=== PATIENT | male | born 1960 | race Hispanic/Latino ===

== ENCOUNTER 2021-11-29 18:17 | Inpatient (IN) | payer MEDICARE ==
[2021-11-30 01:28] LABS: Hematocrit 36.9 % (35.5-45.6); Hemoglobin 11.9 gm/dl (11.8-15.2); Mean Corpuscular HGB Conc 32 % (32-34); Mean Corpuscular Volume 86 fl (84-94); Platelet Count 153 K/mm3 (140-440); Red Blood Count 4.27 M/mm3 (3.65-5.03); Red Cell Distribution Width 16.9 % (13.2-15.2)
[2021-11-30 02:24] LABS: Basophils % (Manual) 0 % (0.0-1.8); Total Cells Counted 100
[2021-11-30 02:26] LABS: Anisocytosis 1+
[2021-11-30 02:30] LABS: Platelet Estimate Consistent w Auto; Rouleaux 1+
[2021-11-30 04:48] LABS: Alanine Aminotransferase 56 units/L (7-56); Albumin 3.4 g/dL (3.9-5); Blood Urea Nitrogen 11 mg/dL (9-20); Calcium 7.7 mg/dL (8.4-10.2); Chol/HDL Ratio 3.16 %; HDL Cholesterol 37 mg/dL (40-59); Hemolysis Index 6; LDL Cholesterol,Direct 62 mg/dL (50-130)
[2021-11-30 04:56] LABS: BUN/Creatinine Ratio 16
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
[2021-11-30] MEDS ORDERED: NON-FORMULARY EACH (Albuterol Sulfate [Proair Respiclick] 90 MCG Aer.Pow.Ba) IH PRN (11:43)
[2021-11-30] MEDS ORDERED: NON-FORMULARY EACH (Ziprasidone Hcl [Geodon] 80 MG Capsule) PO SCH (11:45)
[2021-11-30] MEDS ORDERED: NON-FORMULARY EACH (Fluoxetine Hcl [Prozac] 40 MG Capsule) PO SCH (11:45)
[2021-11-30] MEDS: ZIPRASIDONE 40 MG CAP PO SCH (13:15)
[2021-11-30] MEDS: FLUoxetine 20 MG CAP PO SCH (13:15)
[2021-11-30] MEDS: PANTOPRAZOLE 40 MG TAB PO SCH (13:15)
[2021-11-30] MEDS: amLODIPine 10 MG TAB PO SCH (13:16)
[2021-11-30] MEDS ORDERED: ALBUTEROL 2.5 MG/3 ML NEBU IH SCH (14:00)
[2021-11-30] MEDS: clonazePAM 0.5 MG TAB PO SCH ×2 (15:13→21:09)
[2021-11-30] MEDS ORDERED: ALBUTEROL 2.5 MG/3 ML NEBU IH PRN (16:00)
[2021-11-30] MEDS ORDERED: AMPHETAMINE PO SCH (18:00)
[2021-11-30] MEDS ORDERED: DEXTROAMPHETAMINE PO SCH (18:00)
[2021-11-30] MEDS: rOPINIRole 1 MG TAB PO SCH (21:11)
[2021-11-30] MEDS: TEMAZEPAM 15 MG CAP PO SCH (21:11)
[2021-12-01] MEDS: clonazePAM 0.5 MG TAB PO SCH ×3 (09:49→20:31)
[2021-12-01] MEDS: ACETAMINOPHEN 325 MG TAB PO PRN ×2 (09:49→22:01)
[2021-12-01] MEDS: amLODIPine 10 MG TAB PO SCH (09:50)
[2021-12-01] MEDS: FLUoxetine 20 MG CAP PO SCH (09:50)
[2021-12-01] MEDS: ZIPRASIDONE 40 MG CAP PO SCH (09:50)
[2021-12-01] MEDS: PANTOPRAZOLE 40 MG TAB PO SCH (09:50)
[2021-12-01] MEDS: LEVOTHYROXINE 75 MCG TAB PO SCH (09:55)
[2021-12-01] MEDS ORDERED: NON-FORMULARY EACH (Fluticasone/Umeclidin/Vilanter [Trelegy Ellipta 100-62.5-25] 1 EACH Bl NS SCH (10:00)
--- NOTE | 2021-12-01 10:11 | Progress Note ---
Subjective Date of service: 12/01/21 Principal diagnosis: MDD Subjective Comment: The patient was seen today. He says she is not good. He says he didn't sleep well. The patient says he's very anxious and has a headache. He says he's used to having a high dose of xanax at 8mg daily. I inform the patient that I would increase his klonopin, but will not give 8mg daily. He is in agreement with the plan. He also says he still feels SI. He denies a plan. The patient denies hallucinations of any kind. REVIEW OF SYSTEMS Constitutional: Negative for weight loss ENT: Negative for stridor Respiratory: Negative for cough or hemoptysis All other systems reviewed and are negative MENTAL STATUS EXAMINATION General Appearance and Behavior: Age appropriate, good hygiene, wearing appropriate clothes, good eye contact, anxious, cooperative Cooperation: Participating/engaged, but Guarded Psychomotor Behavior: Psychomotor normal Mood: depressed, SI, anxious Affect and affective range: congruent with stated mood Thought Process: goal directed Thought Content: helplessness, hopelessness Speech: normal tone and pace Suicidal Ideation: Yes Homicidal Ideation: Denies Hallucinations: Denies Delusions: None elicited Impulse Control: Limited Insight and Judgment: Poor insight and judgment Memory: Limited Attention: attentive Orientation: Alert, oriented Assessment and Plan Bipolar Disorder Generalized Anxiety Disorder Treatment Plan Patient admitted for inpatient psychiatric evaluation, medication adjustment and close monitoring The patient's behavior, mood, sleep and appetite will be closely monitored. Patient enrolled in individual and group therapeutic sessions and encouraged to attend. Patient provided with a safe and structured environment. Patient's physical health needs will be addressed by the Hospitalist. Hospitalist Consulted Labs including CBC, CMP, Lipid profile and Hemoglobin A1C levels ordered for baseline reference Social Assessment will be completed and the Ditch Repairer will work with patient and family to ensure a suitable and safe disposition Medication adjustment will be made as clinically indicated Increase Klonopin 1mg po TID Start Melatonin 10mg po qhs prn insomnia Start Vistaril 50mg po BID Usual Wellness Rastafarian/Preservation: - Start Trazodone 50 mg po QHS & 50 mg po QHS PRN between 10 PM & 2 AM for insomnia - Start Melatonin 5 mg po QHS to promote circadian rhythm The patient agreed on the treatment plan, understood the risk, benefit, alternative treatment, potential consequence of no treatment, and gave informed consent. Estimated days: 7 Post hospital care: primary care provider, psychiatric provider Case staffed with Dr. Combs Medications and Allergies Allergies Allergy/AdvReac Type Severity Reaction Status Date / Time Penicillins Allergy Unknown Verified 07/05/15 18:37 Home Medications Medication Instructions Recorded Confirmed Last Taken Type FLUoxetine HCL [PROzac] 80 mg PO QDAY 07/05/15 11/30/21 07/04/15 History ALPRAZolam [Xanax TAB] 2 mg PO Q8H PRN 11/30/21 11/30/21 Unknown History Albuterol Sulfate [Proair 90 mcg IH Q6HR PRN 11/30/21 11/30/21 Unknown History Respiclick] Dextroamphetamine/Amphetami(Nf 30 mg PO 0600,1800 11/30/21 11/30/21 Unknown History [Amphetamine Salts (Nf)] Fluticasone/Umeclidin/Vilanter 1 each IH DAILY 11/30/21 11/30/21 Unknown History [Trelegy Ellipta 100-62.5-25] Levothyroxine [Synthroid] 75 mcg PO QAM 11/30/21 11/30/21 Unknown History Pantoprazole [Protonix] 40 mg PO QDAY 11/30/21 11/30/21 Unknown History Temazepam [Restoril] 30 mg PO QHS 11/30/21 11/30/21 Unknown History Ziprasidone HCl [Geodon] 80 mg PO DAILY 11/30/21 11/30/21 Unknown History amLODIPine [Norvasc] 10 mg PO DAILY 11/30/21 11/30/21 Unknown History rOPINIRole [Requip] 1 mg PO QHS 11/30/21 11/30/21 Unknown History Active Meds: Active Medications Acetaminophen (Acetaminophen 325 Mg Tab) 650 mg PO Q6H PRN PRN Reason: Pain, Mild (1-3) Last Admin: 12/01/21 09:49 Dose: 650 mg Albuterol (Albuterol 2.5 Mg/3 Ml Nebu) 2.5 mg IH Q4HRT PRN PRN Reason: Shortness Of Breath Amlodipine Besylate (Amlodipine 10 Mg Tab) 10 mg PO DAILY [facility] Last Admin: 12/01/21 09:50 Dose: 10 mg Clonazepam (Clonazepam 0.5 Mg Tab) 1 mg PO TID [facility] Fluoxetine HCl (Fluoxetine 20 Mg Cap) 80 mg PO QDAY [facility] Last Admin: 12/01/21 09:50 Dose: 80 mg Levothyroxine Sodium (Levothyroxine 75 Mcg Tab) 75 mcg PO DAILY@0600 [facility] Last Admin: 12/01/21 09:55 Dose: 75 mcg Melatonin (Melatonin 5 Mg Tab) 10 mg PO QHS PRN PRN Reason: Sleep Miscellaneous Medication (Dextroamphetamine/Amphetamine) 30 mg PO 0600,1800 [facility] Miscellaneous Medication (Fluticasone/Umeclidin/Vilanter [Trelegy Ellipta 100-62.5-25]) 1 each IH DAILY [facility] Pantoprazole Sodium (Pantoprazole 40 Mg Tab) 40 mg PO QDAY [facility] Last Admin: 12/01/21 09:50 Dose: 40 mg Ropinirole HCl (Ropinirole 1 Mg Tab) 1 mg PO QHS [facility] Last Admin: 11/30/21 21:11 Dose: 1 mg Temazepam (Temazepam 15 Mg Cap) 30 mg PO QHS [facility] Last Admin: 11/30/21 21:11 Dose: 30 mg Ziprasidone (Ziprasidone 40 Mg Cap) 80 mg PO DAILY [facility] Last Admin: 12/01/21 09:50 Dose: 80 mg Results - Results Labs/Vitals: Laboratory Last Values WBC 4.5 K/mm3 (4.5-11.0) 11/30/21 01:01 RBC 4.27 M/mm3 (3.65-5.03) 11/30/21 01:01 Hgb 11.9 gm/dl (11.8-15.2) 11/30/21 01:01 Hct 36.9 % (35.5-45.6) 11/30/21 01:01 MCV 86 fl (84-94) 11/30/21 01:01 MCH 28 pg (28-32) 11/30/21 01:01 MCHC 32 % (32-34) 11/30/21 01:01 RDW 16.9 % (13.2-15.2) H 11/30/21 01:01 Plt Count 153 K/mm3 (140-440) 11/30/21 01:01 Add Manual Diff Complete 11/30/21 01:01 Total Counted 100 11/30/21 01:01 Seg Neuts % (Manual) 34.0 % (40.0-70.0) L 11/30/21 01:01 Band Neutrophils % 0 % 11/30/21 01:01 Lymphocytes % (Manual) 48.0 % (13.4-35.0) H 11/30/21 01:01 Reactive Lymphs % (Man) 0 % 11/30/21 01:01 Monocytes % (Manual) 7.0 % (0.0-7.3) 11/30/21 01:01 Eosinophils % (Manual) 11.0 % (0.0-4.3) H 11/30/21 01:01 Basophils % (Manual) 0 % (0.0-1.8) 11/30/21 01:01 Metamyelocytes % 0 % 11/30/21 01:01 Myelocytes % 0 % 11/30/21 01:01 Promyelocytes % 0 % 11/30/21 01:01 Blast Cells % 0 % 11/30/21 01:01 Nucleated RBC % Not Reportable 11/30/21 01:01 Seg Neutrophils # Man 1.5 K/mm3 (1.8-7.7) L 11/30/21 01:01 Band Neutrophils # 0.0 K/mm3 11/30/21 01:01 Lymphocytes # (Manual) 2.2 K/mm3 (1.2-5.4) 11/30/21 01:01 Abs React Lymphs (Man) 0.0 K/mm3 11/30/21 01:01 Monocytes # (Manual) 0.3 K/mm3 (0.0-0.8) 11/30/21 01:01 Eosinophils # (Manual) 0.5 K/mm3 (0.0-0.4) H 11/30/21 01:01 Basophils # (Manual) 0.0 K/mm3 (0.0-0.1) 11/30/21 01:01 Metamyelocytes # 0.0 K/mm3 11/30/21 01:01 Myelocytes # 0.0 K/mm3 11/30/21 01:01 Promyelocytes # 0.0 K/mm3 11/30/21 01:01 Blast Cells # 0.0 K/mm3 11/30/21 01:01 Pathologist Review 11/30/21 01:01 Hypersegmented Neuts Not Reportable 11/30/21 01:01 Hyposegmented Neuts Not Reportable 11/30/21 01:01 Hypogranular Neuts Not Reportable 11/30/21 01:01 Smudge Cells Not Reportable 11/30/21 01:01 Toxic Granulation Not Reportable 11/30/21 01:01 Toxic Vacuolation Not Reportable 11/30/21 01:01 Dohle Bodies Not Reportable 11/30/21 01:01 Pelger-Huet Anomaly Not Reportable 11/30/21 01:01 Sohail Rods Not Reportable 11/30/21 01:01 Platelet Estimate Consistent w auto 11/30/21 01:01 Clumped Platelets Not Reportable 11/30/21 01:01 Plt Clumps, EDTA Not Reportable 11/30/21 01:01 Large Platelets Not Reportable 11/30/21 01:01 Giant Platelets Not Reportable 11/30/21 01:01 Platelet Satelliting Not Reportable 11/30/21 01:01 Plt Morphology Comment Not Reportable 11/30/21 01:01 RBC Morphology Not Reportable 11/30/21 01:01 Dimorphic RBCs Not Reportable 11/30/21 01:01 Polychromasia Not Reportable 11/30/21 01:01 Hypochromasia Not Reportable 11/30/21 01:01 Poikilocytosis Not Reportable 11/30/21 01:01 Anisocytosis 1+ 11/30/21 01:01 Microcytosis 1+ 11/30/21 01:01 Macrocytosis Not Reportable 11/30/21 01:01 Spherocytes Not Reportable 11/30/21 01:01 Pappenheimer Bodies Not Reportable 11/30/21 01:01 Sickle Cells Not Reportable 11/30/21 01:01 Target Cells Not Reportable 11/30/21 01:01 Tear Drop Cells Not Reportable 11/30/21 01:01 Ovalocytes Not Reportable 11/30/21 01:01 Helmet Cells Not Reportable 11/30/21 01:01 Corado-Irwin Bodies Not Reportable 11/30/21 01:01 [place] Rings Not Reportable 11/30/21 01:01 Carlos Cells Not Reportable 11/30/21 01:01 Bite Cells Not Reportable 11/30/21 01:01 Crenated Cell Not Reportable 11/30/21 01:01 Elliptocytes Not Reportable 11/30/21 01:01 Acanthocytes (Spur) Not Reportable 11/30/21 01:01 Rouleaux 1+ 11/30/21 01:01 Hemoglobin C Crystals Not Reportable 11/30/21 01:01 Schistocytes Not Reportable 11/30/21 01:01 Malaria parasites Not Reportable 11/30/21 01:01 Sunday Bodies Not Reportable 11/30/21 01:01 Hem Pathologist Commnt Sent to pathology 11/30/21 01:01 Sodium 142 mmol/L (137-145) 11/30/21 01:01 Potassium 3.6 mmol/L (3.6-5.0) 11/30/21 01:01 Chloride 107.7 mmol/L (98-107) H 11/30/21 01:01 Carbon Dioxide 20 mmol/L (22-30) L 11/30/21 01:01 Anion Gap 18 mmol/L 11/30/21 01:01 BUN 11 mg/dL (9-20) 11/30/21 01:01 Creatinine 0.7 mg/dL (0.8-1.3) L 11/30/21 01:01 Estimated GFR > 60 ml/min 11/30/21 01:01 BUN/Creatinine Ratio 16 % 11/30/21 01:01 Glucose 100 mg/dL (75-100) 11/30/21 01:01 Hemoglobin A1c 5.1 % (4-6) 11/30/21 01:01 Calcium 7.7 mg/dL (8.4-10.2) L 11/30/21 01:01 Total Bilirubin 0.60 mg/dL (0.1-1.2) 11/30/21 01:01 AST 37 units/L (5-40) 11/30/21 01:01 ALT 56 units/L (7-56) 11/30/21 01:01 Alkaline Phosphatase 121 units/L (35-129) 11/30/21 01:01 Total Protein 5.6 g/dL (6.3-8.2) L 11/30/21 01:01 Albumin 3.4 g/dL (3.9-5) L 11/30/21 01:01 Albumin/Globulin Ratio 1.5 % 11/30/21 01:01 Triglycerides 104 mg/dL (2-149) 11/30/21 01:01 Cholesterol 117 mg/dL (50-199) 11/30/21 01:01 LDL Cholesterol Direct 62 mg/dL (50-130) 11/30/21 01:01 HDL Cholesterol 37 mg/dL (40-59) L 11/30/21 01:01 Cholesterol/HDL Ratio 3.16 % 11/30/21 01:01 TSH 1.950 mlU/mL (0.270-4.200) 11/30/21 01:01 Last Vital Signs Temp 98.5 F 12/01/21 08:44 Pulse 75 12/01/21 09:50 Resp 16 12/01/21 08:44 BP 136/82 12/01/21 09:50 Pulse Ox 96 12/01/21 08:44
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
[2021-12-01] MEDS: rOPINIRole 1 MG TAB PO SCH (21:26)
[2021-12-01] MEDS: TEMAZEPAM 15 MG CAP PO SCH (21:26)
[2021-12-02] MEDS: LEVOTHYROXINE 75 MCG TAB PO SCH (05:42)
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
--- NOTE | 2021-12-02 09:07 | Progress Note ---
Subjective Date of service: 12/02/21 Principal diagnosis: MDD Subjective Comment: The patient was seen today. He thanks me for treating him. He says he usually doesn't like vistaril but it has been helping him to sleep well. He still endorses SI but denies a plan. He says his is missing and he would like to speak with the SW. 12/01 The patient was seen today. He says she is not good. He says he didn't sleep well. The patient says he's very anxious and has a headache. He says he's used to having a high dose of xanax at 8mg daily. I inform the patient that I would increase his klonopin, but will not give 8mg daily. He is in agreement with the plan. He also says he still feels SI. He denies a plan. The patient denies hallucinations of any kind. REVIEW OF SYSTEMS Constitutional: Negative for weight loss ENT: Negative for stridor Respiratory: Negative for cough or hemoptysis All other systems reviewed and are negative MENTAL STATUS EXAMINATION General Appearance and Behavior: Age appropriate, good hygiene, wearing appropriate clothes, good eye contact, anxious, cooperative Cooperation: Participating/engaged, but Guarded Psychomotor Behavior: Psychomotor normal Mood: depressed, SI, anxious Affect and affective range: congruent with stated mood Thought Process: goal directed Thought Content: helplessness, hopelessness Speech: normal tone and pace Suicidal Ideation: Yes Homicidal Ideation: Denies Hallucinations: Denies Delusions: None elicited Impulse Control: Limited Insight and Judgment: Poor insight and judgment Memory: Limited Attention: attentive Orientation: Alert, oriented Assessment and Plan Bipolar Disorder Generalized Anxiety Disorder Treatment Plan Patient admitted for inpatient psychiatric evaluation, medication adjustment and close monitoring The patient's behavior, mood, sleep and appetite will be closely monitored. Patient enrolled in individual and group therapeutic sessions and encouraged to attend. Patient provided with a safe and structured environment. Patient's physical health needs will be addressed by the Hospitalist. Hospitalist Consulted Labs including CBC, CMP, Lipid profile and Hemoglobin A1C levels ordered for baseline reference Social Assessment will be completed and the Dba Manager will work with patient and family to ensure a suitable and safe disposition Medication adjustment will be made as clinically indicated Continue current meds Usual Wellness Congregation/Preservation: - Start Trazodone 50 mg po QHS & 50 mg po QHS PRN between 10 PM & 2 AM for insomnia - Start Melatonin 5 mg po QHS to promote circadian rhythm The patient agreed on the treatment plan, understood the risk, benefit, alternative treatment, potential consequence of no treatment, and gave informed consent. Estimated days: 7 Post hospital care: primary care provider, psychiatric provider Case staffed with Dr. Combs Medications and Allergies Allergies Allergy/AdvReac Type Severity Reaction Status Date / Time Penicillins Allergy Unknown Verified 07/05/15 18:37 Home Medications Medication Instructions Recorded Confirmed Last Taken Type FLUoxetine HCL [PROzac] 80 mg PO QDAY 07/05/15 11/30/21 07/04/15 History ALPRAZolam [Xanax TAB] 2 mg PO Q8H PRN 11/30/21 11/30/21 Unknown History Albuterol Sulfate [Proair 90 mcg IH Q6HR PRN 11/30/21 11/30/21 Unknown History Respiclick] Dextroamphetamine/Amphetami(Nf 30 mg PO 0600,1800 11/30/21 11/30/21 Unknown History [Amphetamine Salts (Nf)] Fluticasone/Umeclidin/Vilanter 1 each IH DAILY 11/30/21 11/30/21 Unknown History [Trelegy Ellipta 100-62.5-25] Levothyroxine [Synthroid] 75 mcg PO QAM 11/30/21 11/30/21 Unknown History Pantoprazole [Protonix] 40 mg PO QDAY 11/30/21 11/30/21 Unknown History Temazepam [Restoril] 30 mg PO QHS 11/30/21 11/30/21 Unknown History Ziprasidone HCl [Geodon] 80 mg PO DAILY 11/30/21 11/30/21 Unknown History amLODIPine [Norvasc] 10 mg PO DAILY 11/30/21 11/30/21 Unknown History rOPINIRole [Requip] 1 mg PO QHS 11/30/21 11/30/21 Unknown History Active Meds: Active Medications Acetaminophen (Acetaminophen 325 Mg Tab) 650 mg PO Q6H PRN PRN Reason: Pain, Mild (1-3) Last Admin: 12/01/21 22:01 Dose: 650 mg Albuterol (Albuterol 2.5 Mg/3 Ml Nebu) 2.5 mg IH Q4HRT PRN PRN Reason: Shortness Of Breath Amlodipine Besylate (Amlodipine 10 Mg Tab) 10 mg PO DAILY [facility] Last Admin: 12/01/21 09:50 Dose: 10 mg Clonazepam (Clonazepam 0.5 Mg Tab) 1 mg PO TID [facility] Last Admin: 12/01/21 20:31 Dose: 1 mg Fluoxetine HCl (Fluoxetine 20 Mg Cap) 80 mg PO QDAY [facility] Last Admin: 12/01/21 09:50 Dose: 80 mg Hydroxyzine Pamoate (Hydroxyzine Pamoate 50 Mg Cap) 50 mg PO BID [facility] Last Admin: 12/01/21 21:26 Dose: 50 mg Levothyroxine Sodium (Levothyroxine 75 Mcg Tab) 75 mcg PO DAILY@0600 [facility] Last Admin: 12/02/21 05:42 Dose: 75 mcg Melatonin (Melatonin 5 Mg Tab) 10 mg PO QHS PRN PRN Reason: Sleep Miscellaneous Medication (Dextroamphetamine/Amphetamine) 30 mg PO 0600,1800 [facility] Miscellaneous Medication (Fluticasone/Umeclidin/Vilanter [Trelegy Ellipta 100-62.5-25]) 1 each IH DAILY [facility] Pantoprazole Sodium (Pantoprazole 40 Mg Tab) 40 mg PO QDAY [facility] Last Admin: 12/01/21 09:50 Dose: 40 mg Ropinirole HCl (Ropinirole 1 Mg Tab) 1 mg PO QHS [facility] Last Admin: 12/01/21 21:26 Dose: 1 mg Temazepam (Temazepam 15 Mg Cap) 30 mg PO QHS [facility] Last Admin: 12/01/21 21:26 Dose: 30 mg Ziprasidone (Ziprasidone 40 Mg Cap) 80 mg PO DAILY [facility] Last Admin: 12/01/21 09:50 Dose: 80 mg Results - Results Labs/Vitals: Laboratory Last Values WBC 4.5 K/mm3 (4.5-11.0) 11/30/21 01:01 RBC 4.27 M/mm3 (3.65-5.03) 11/30/21 01:01 Hgb 11.9 gm/dl (11.8-15.2) 11/30/21 01:01 Hct 36.9 % (35.5-45.6) 11/30/21 01:01 MCV 86 fl (84-94) 11/30/21 01:01 MCH 28 pg (28-32) 11/30/21 01:01 MCHC 32 % (32-34) 11/30/21 01:01 RDW 16.9 % (13.2-15.2) H 11/30/21 01:01 Plt Count 153 K/mm3 (140-440) 11/30/21 01:01 Add Manual Diff Complete 11/30/21 01:01 Total Counted 100 11/30/21 01:01 Seg Neuts % (Manual) 34.0 % (40.0-70.0) L 11/30/21 01:01 Band Neutrophils % 0 % 11/30/21 01:01 Lymphocytes % (Manual) 48.0 % (13.4-35.0) H 11/30/21 01:01 Reactive Lymphs % (Man) 0 % 11/30/21 01:01 Monocytes % (Manual) 7.0 % (0.0-7.3) 11/30/21 01:01 Eosinophils % (Manual) 11.0 % (0.0-4.3) H 11/30/21 01:01 Basophils % (Manual) 0 % (0.0-1.8) 11/30/21 01:01 Metamyelocytes % 0 % 11/30/21 01:01 Myelocytes % 0 % 11/30/21 01:01 Promyelocytes % 0 % 11/30/21 01:01 Blast Cells % 0 % 11/30/21 01:01 Nucleated RBC % Not Reportable 11/30/21 01:01 Seg Neutrophils # Man 1.5 K/mm3 (1.8-7.7) L 11/30/21 01:01 Band Neutrophils # 0.0 K/mm3 11/30/21 01:01 Lymphocytes # (Manual) 2.2 K/mm3 (1.2-5.4) 11/30/21 01:01 Abs React Lymphs (Man) 0.0 K/mm3 11/30/21 01:01 Monocytes # (Manual) 0.3 K/mm3 (0.0-0.8) 11/30/21 01:01 Eosinophils # (Manual) 0.5 K/mm3 (0.0-0.4) H 11/30/21 01:01 Basophils # (Manual) 0.0 K/mm3 (0.0-0.1) 11/30/21 01:01 Metamyelocytes # 0.0 K/mm3 11/30/21 01:01 Myelocytes # 0.0 K/mm3 11/30/21 01:01 Promyelocytes # 0.0 K/mm3 11/30/21 01:01 Blast Cells # 0.0 K/mm3 11/30/21 01:01 Pathologist Review 11/30/21 01:01 WBC Morphology Not Reportable 11/30/21 01:01 Hypersegmented Neuts Not Reportable 11/30/21 01:01 Hyposegmented Neuts Not Reportable 11/30/21 01:01 Hypogranular Neuts Not Reportable 11/30/21 01:01 Smudge Cells Not Reportable 11/30/21 01:01 Toxic Granulation Not Reportable 11/30/21 01:01 Toxic Vacuolation Not Reportable 11/30/21 01:01 Dohle Bodies Not Reportable 11/30/21 01:01 Pelger-Huet Anomaly Not Reportable 11/30/21 01:01 Sohail Rods Not Reportable 11/30/21 01:01 Platelet Estimate Consistent w auto 11/30/21 01:01 Clumped Platelets Not Reportable 11/30/21 01:01 Plt Clumps, EDTA Not Reportable 11/30/21 01:01 Large Platelets Not Reportable 11/30/21 01:01 Giant Platelets Not Reportable 11/30/21 01:01 Platelet Satelliting Not Reportable 11/30/21 01:01 Plt Morphology Comment Not Reportable 11/30/21 01:01 RBC Morphology Not Reportable 11/30/21 01:01 Dimorphic RBCs Not Reportable 11/30/21 01:01 Polychromasia Not Reportable 11/30/21 01:01 Hypochromasia Not Reportable 11/30/21 01:01 Poikilocytosis Not Reportable 11/30/21 01:01 Anisocytosis 1+ 11/30/21 01:01 Microcytosis 1+ 11/30/21 01:01 Macrocytosis Not Reportable 11/30/21 01:01 Spherocytes Not Reportable 11/30/21 01:01 Pappenheimer Bodies Not Reportable 11/30/21 01:01 Sickle Cells Not Reportable 11/30/21 01:01 Target Cells Not Reportable 11/30/21 01:01 Tear Drop Cells Not Reportable 11/30/21 01:01 Ovalocytes Not Reportable 11/30/21 01:01 Helmet Cells Not Reportable 11/30/21 01:01 [place] Bodies Not Reportable 11/30/21 01:01 [place] Rings Not Reportable 11/30/21 01:01 Carlos Cells Not Reportable 11/30/21 01:01 Bite Cells Not Reportable 11/30/21 01:01 Crenated Cell Not Reportable 11/30/21 01:01 Elliptocytes Not Reportable 11/30/21 01:01 Acanthocytes (Spur) Not Reportable 11/30/21 01:01 Rouleaux 1+ 11/30/21 01:01 Hemoglobin C Crystals Not Reportable 11/30/21 01:01 Schistocytes Not Reportable 11/30/21 01:01 Malaria parasites Not Reportable 11/30/21 01:01 Sunday Bodies Not Reportable 11/30/21 01:01 Hem Pathologist Commnt Sent to pathology 11/30/21 01:01 Sodium 142 mmol/L (137-145) 11/30/21 01:01 Potassium 3.6 mmol/L (3.6-5.0) 11/30/21 01:01 Chloride 107.7 mmol/L (98-107) H 11/30/21 01:01 Carbon Dioxide 20 mmol/L (22-30) L 11/30/21 01:01 Anion Gap 18 mmol/L 11/30/21 01:01 BUN 11 mg/dL (9-20) 11/30/21 01:01 Creatinine 0.7 mg/dL (0.8-1.3) L 11/30/21 01:01 Estimated GFR > 60 ml/min 11/30/21 01:01 BUN/Creatinine Ratio 16 % 11/30/21 01:01 Glucose 100 mg/dL (75-100) 11/30/21 01:01 Hemoglobin A1c 5.1 % (4-6) 11/30/21 01:01 Calcium 7.7 mg/dL (8.4-10.2) L 11/30/21 01:01 Total Bilirubin 0.60 mg/dL (0.1-1.2) 11/30/21 01:01 AST 37 units/L (5-40) 11/30/21 01:01 ALT 56 units/L (7-56) 11/30/21 01:01 Alkaline Phosphatase 121 units/L (35-129) 11/30/21 01:01 Total Protein 5.6 g/dL (6.3-8.2) L 11/30/21 01:01 Albumin 3.4 g/dL (3.9-5) L 11/30/21 01:01 Albumin/Globulin Ratio 1.5 % 11/30/21 01:01 Triglycerides 104 mg/dL (2-149) 11/30/21 01:01 Cholesterol 117 mg/dL (50-199) 11/30/21 01:01 LDL Cholesterol Direct 62 mg/dL (50-130) 11/30/21 01:01 HDL Cholesterol 37 mg/dL (40-59) L 11/30/21 01:01 Cholesterol/HDL Ratio 3.16 % 11/30/21 01:01 TSH 1.950 mlU/mL (0.270-4.200) 11/30/21 01:01 Last Vital Signs Temp 98.4 F 12/01/21 20:00 Pulse 79 12/01/21 20:00 Resp 18 12/01/21 22:01 BP 127/74 12/01/21 20:00 Pulse Ox 93 12/01/21 20:00
[2021-12-02] MEDS: FLUoxetine 20 MG CAP PO SCH (09:48)
[2021-12-02] MEDS: ZIPRASIDONE 40 MG CAP PO SCH (09:48)
[2021-12-02] MEDS: clonazePAM 0.5 MG TAB PO SCH ×3 (09:48→21:34)
[2021-12-02] MEDS: PANTOPRAZOLE 40 MG TAB PO SCH (09:49)
[2021-12-02] MEDS: amLODIPine 10 MG TAB PO SCH (09:49)
[2021-12-02] MEDS ORDERED: ALBUTEROL 8.5 GM MDI INHALATION IH PRN (11:14)
[2021-12-02] MEDS: ARFORMOTEROL 15 MCG/2 ML NEBU IH SCH ×2 (14:09→21:03)
[2021-12-02] MEDS: BUDESONIDE 0.5 MG/2 ML NEBU IH SCH ×2 (14:09→21:03)
[2021-12-02] MEDS: rOPINIRole 1 MG TAB PO SCH (21:33)
[2021-12-02] MEDS: TEMAZEPAM 15 MG CAP PO SCH (21:35)
[2021-12-02] MEDS: MELATONIN 5 MG TAB PO PRN (21:36)
[2021-12-03] MEDS: LEVOTHYROXINE 75 MCG TAB PO SCH (06:12)
[2021-12-03] MEDS: ACETAMINOPHEN 325 MG TAB PO PRN (06:16)
[2021-12-03] MEDS: FLUoxetine 20 MG CAP PO SCH (09:38)
[2021-12-03] MEDS: clonazePAM 0.5 MG TAB PO SCH ×3 (09:38→20:39)
[2021-12-03] MEDS: PANTOPRAZOLE 40 MG TAB PO SCH (09:39)
[2021-12-03] MEDS: ZIPRASIDONE 40 MG CAP PO SCH (09:39)
[2021-12-03] MEDS: amLODIPine 10 MG TAB PO SCH (09:40)
--- NOTE | 2021-12-03 10:55 | Progress Note ---
Subjective Date of service: 12/03/21 Principal diagnosis: MDD Subjective Comment: 12/03: The patient was seen today. He states he is doing well. He continues to endorse depression rating as 7/10. He states sleep is better. He states that his was missing and he found him yesterday in a " trauma unit in [place]." The patient reports having suicidal ideation with no plan " not here." he denies hallucinations. 12/02: The patient was seen today. He thanks me for treating him. He says he usually doesn't like vistaril but it has been helping him to sleep well. He still endorses SI but denies a plan. He says his is missing and he would like to speak with the SW. 12/01 The patient was seen today. He says she is not good. He says he didn't sleep well. The patient says he's very anxious and has a headache. He says he's used to having a high dose of xanax at 8mg daily. I inform the patient that I would increase his klonopin, but will not give 8mg daily. He is in agreement with the plan. He also says he still feels SI. He denies a plan. The patient denies hallucinations of any kind. REVIEW OF SYSTEMS Constitutional: Negative for weight loss ENT: Negative for stridor Respiratory: Negative for cough or hemoptysis All other systems reviewed and are negative MENTAL STATUS EXAMINATION General Appearance and Behavior: Age appropriate, good hygiene, wearing appropriate clothes, good eye contact, anxious, cooperative Cooperation: Participating/engaged, but Guarded Psychomotor Behavior: Psychomotor normal Mood: depressed, SI, anxious Affect and affective range: congruent with stated mood Thought Process: goal directed Thought Content: suicidal Speech: normal tone and pace Suicidal Ideation: Yes Homicidal Ideation: Denies Hallucinations: Denies Delusions: None elicited Impulse Control: Limited Insight and Judgment: Poor insight and judgment Memory: Limited Attention: attentive Orientation: Alert, oriented Assessment and Plan Bipolar Disorder Generalized Anxiety Disorder Treatment Plan Patient admitted for inpatient psychiatric evaluation, medication adjustment and close monitoring The patient's behavior, mood, sleep and appetite will be closely monitored. Patient enrolled in individual and group therapeutic sessions and encouraged to attend. Patient provided with a safe and structured environment. Patient's physical health needs will be addressed by the Hospitalist. Hospitalist Consulted Labs including CBC, CMP, Lipid profile and Hemoglobin A1C levels ordered for baseline reference Social Assessment will be completed and the Senior Pharmacy Technician will work with patient and family to ensure a suitable and safe disposition Medication adjustment will be made as clinically indicated Continue current meds Usual Wellness Restorationist/Preservation: - Start Trazodone 50 mg po QHS & 50 mg po QHS PRN between 10 PM & 2 AM for insomnia - Start Melatonin 5 mg po QHS to promote circadian rhythm The patient agreed on the treatment plan, understood the risk, benefit, alternative treatment, potential consequence of no treatment, and gave informed consent. Estimated days: 1 Post hospital care: primary care provider, psychiatric provider Case staffed with Dr. Combs Medications and Allergies Medications and Allergies Allergies Allergy/AdvReac Type Severity Reaction Status Date / Time Penicillins Allergy Unknown Verified 07/05/15 18:37 Home Medications Medication Instructions Recorded Confirmed Last Taken Type FLUoxetine HCL [PROzac] 80 mg PO QDAY 07/05/15 11/30/21 07/04/15 History ALPRAZolam [Xanax TAB] 2 mg PO Q8H PRN 11/30/21 11/30/21 Unknown History Albuterol Sulfate [Proair 90 mcg IH Q6HR PRN 11/30/21 11/30/21 Unknown History Respiclick] Dextroamphetamine/Amphetami(Nf 30 mg PO 0600,1800 11/30/21 11/30/21 Unknown Hist ory [Amphetamine Salts (Nf)] Fluticasone/Umeclidin/Vilanter 1 each IH DAILY 11/30/21 11/30/21 Unknown History [Trelegy Ellipta 100-62.5-25] Levothyroxine [Synthroid] 75 mcg PO QAM 11/30/21 11/30/21 Unknown History Pantoprazole [Protonix] 40 mg PO QDAY 11/30/21 11/30/21 Unknown History Temazepam [Restoril] 30 mg PO QHS 11/30/21 11/30/21 Unknown History Ziprasidone HCl [Geodon] 80 mg PO DAILY 11/30/21 11/30/21 Unknown History amLODIPine [Norvasc] 10 mg PO DAILY 11/30/21 11/30/21 Unknown History rOPINIRole [Requip] 1 mg PO QHS 11/30/21 11/30/21 Unknown History Active Meds: Active Medications Acetaminophen (Acetaminophen 325 Mg Tab) 650 mg PO Q6H PRN PRN Reason: Pain, Mild (1-3) Last Admin: 12/03/21 06:16 Dose: 650 mg Albuterol (Albuterol 2.5 Mg/3 Ml Nebu) 2.5 mg IH Q4HRT PRN PRN Reason: Shortness Of Breath Amlodipine Besylate (Amlodipine 10 Mg Tab) 10 mg PO DAILY [facility] Last Admin: 12/03/21 09:40 Dose: 10 mg Arformoterol Tartrate (Arformoterol 15 Mcg/2 Ml Nebu) 15 mcg IH Q12HRT [facility] Last Admin: 12/02/21 21:03 Dose: 15 mcg Budesonide (Budesonide 0.5 Mg/2 Ml Nebu) 0.5 mg IH Q12HRT [facility] Last Admin: 12/02/21 21:03 Dose: 0.5 mg Clonazepam (Clonazepam 0.5 Mg Tab) 1 mg PO TID [facility] Last Admin: 12/03/21 09:38 Dose: 1 mg Fluoxetine HCl (Fluoxetine 20 Mg Cap) 80 mg PO QDAY [facility] Last Admin: 12/03/21 09:38 Dose: 80 mg Hydroxyzine Pamoate (Hydroxyzine Pamoate 50 Mg Cap) 50 mg PO BID [facility] Last Admin: 12/03/21 09:39 Dose: 50 mg Levothyroxine Sodium (Levothyroxine 75 Mcg Tab) 75 mcg PO DAILY@0600 [facility] Last Admin: 12/03/21 06:12 Dose: 75 mcg Melatonin (Melatonin 5 Mg Tab) 10 mg PO QHS PRN PRN Reason: Sleep Last Admin: 12/02/21 21:36 Dose: 10 mg Miscellaneous Medication (Dextroamphetamine/Amphetamine) 30 mg PO 0600,1800 [facility] Miscellaneous Medication (Fluticasone/Umeclidin/Vilanter [Trelegy Ellipta 100-62.5-25]) 1 each NS DAILY [facility] Pantoprazole Sodium (Pantoprazole 40 Mg Tab) 40 mg PO QDAY [facility] Last Admin: 12/03/21 09:39 Dose: 40 mg Ropinirole HCl (Ropinirole 1 Mg Tab) 1 mg PO QHS [facility] Last Admin: 12/02/21 21:33 Dose: 1 mg Temazepam (Temazepam 15 Mg Cap) 30 mg PO QHS [facility] Last Admin: 12/02/21 21:35 Dose: 30 mg Ziprasidone (Ziprasidone 40 Mg Cap) 80 mg PO DAILY [facility] Last Admin: 12/03/21 09:39 Dose: Not Given Results - Results Labs/Vitals: Laboratory Last Values WBC 4.5 K/mm3 (4.5-11.0) 11/30/21 01:01 RBC 4.27 M/mm3 (3.65-5.03) 11/30/21 01:01 Hgb 11.9 gm/dl (11.8-15.2) 11/30/21 01:01 Hct 36.9 % (35.5-45.6) 11/30/21 01:01 MCV 86 fl (84-94) 11/30/21 01:01 MCH 28 pg (28-32) 11/30/21 01:01 MCHC 32 % (32-34) 11/30/21 01:01 RDW 16.9 % (13.2-15.2) H 11/30/21 01:01 Plt Count 153 K/mm3 (140-440) 11/30/21 01:01 Add Manual Diff Complete 11/30/21 01:01 Total Counted 100 11/30/21 01:01 Seg Neuts % (Manual) 34.0 % (40.0-70.0) L 11/30/21 01:01 Band Neutrophils % 0 % 11/30/21 01:01 Lymphocytes % (Manual) 48.0 % (13.4-35.0) H 11/30/21 01:01 Reactive Lymphs % (Man) 0 % 11/30/21 01:01 Monocytes % (Manual) 7.0 % (0.0-7.3) 11/30/21 01:01 Eosinophils % (Manual) 11.0 % (0.0-4.3) H 11/30/21 01:01 Basophils % (Manual) 0 % (0.0-1.8) 11/30/21 01:01 Metamyelocytes % 0 % 11/30/21 01:01 Myelocytes % 0 % 11/30/21 01:01 Promyelocytes % 0 % 11/30/21 01:01 Blast Cells % 0 % 11/30/21 01:01 Nucleated RBC % Not Reportable 11/30/21 01:01 Seg Neutrophils # Man 1.5 K/mm3 (1.8-7.7) L 11/30/21 01:01 Band Neutrophils # 0.0 K/mm3 11/30/21 01:01 Lymphocytes # (Manual) 2.2 K/mm3 (1.2-5.4) 11/30/21 01:01 Abs React Lymphs (Man) 0.0 K/mm3 11/30/21 01:01 Monocytes # (Manual) 0.3 K/mm3 (0.0-0.8) 11/30/21 01:01 Eosinophils # (Manual) 0.5 K/mm3 (0.0-0.4) H 11/30/21 01:01 Basophils # (Manual) 0.0 K/mm3 (0.0-0.1) 11/30/21 01:01 Metamyelocytes # 0.0 K/mm3 11/30/21 01:01 Myelocytes # 0.0 K/mm3 11/30/21 01:01 Promyelocytes # 0.0 K/mm3 11/30/21 01:01 Blast Cells # 0.0 K/mm3 11/30/21 01:01 Pathologist Review 11/30/21 01:01 WBC Morphology Not Reportable 11/30/21 01:01 Hypersegmented Neuts Not Reportable 11/30/21 01:01 Hyposegmented Neuts Not Reportable 11/30/21 01:01 Hypogranular Neuts Not Reportable 11/30/21 01:01 Smudge Cells Not Reportable 11/30/21 01:01 Toxic Granulation Not Reportable 11/30/21 01:01 Toxic Vacuolation Not Reportable 11/30/21 01:01 Dohle Bodies Not Reportable 11/30/21 01:01 Pelger-Huet Anomaly Not Reportable 11/30/21 01:01 Sohail Rods Not Reportable 11/30/21 01:01 Platelet Estimate Consistent w auto 11/30/21 01:01 Clumped Platelets Not Reportable 11/30/21 01:01 Plt Clumps, EDTA Not Reportable 11/30/21 01:01 Large Platelets Not Reportable 11/30/21 01:01 Giant Platelets Not Reportable 11/30/21 01:01 Platelet Satelliting Not Reportable 11/30/21 01:01 Plt Morphology Comment Not Reportable 11/30/21 01:01 RBC Morphology Not Reportable 11/30/21 01:01 Dimorphic RBCs Not Reportable 11/30/21 01:01 Polychromasia Not Reportable 11/30/21 01:01 Hypochromasia Not Reportable 11/30/21 01:01 Poikilocytosis Not Reportable 11/30/21 01:01 Anisocytosis 1+ 11/30/21 01:01 Microcytosis 1+ 11/30/21 01:01 Macrocytosis Not Reportable 11/30/21 01:01 Spherocytes Not Reportable 11/30/21 01:01 Pappenheimer Bodies Not Reportable 11/30/21 01:01 Sickle Cells Not Reportable 11/30/21 01:01 Target Cells Not Reportable 11/30/21 01:01 Tear Drop Cells Not Reportable 11/30/21 01:01 Ovalocytes Not Reportable 11/30/21 01:01 Helmet Cells Not Reportable 11/30/21 01:01 [place] Bodies Not Reportable 11/30/21 01:01 [place] Rings Not Reportable 11/30/21 01:01 [place] Cells Not Reportable 11/30/21 01:01 Bite Cells Not Reportable 11/30/21 01:01 Crenated Cell Not Reportable 11/30/21 01:01 Elliptocytes Not Reportable 11/30/21 01:01 Acanthocytes (Spur) Not Reportable 11/30/21 01:01 Rouleaux 1+ 11/30/21 01:01 Hemoglobin C Crystals Not Reportable 11/30/21 01:01 Schistocytes Not Reportable 11/30/21 01:01 Malaria parasites Not Reportable 11/30/21 01:01 Sunday Bodies Not Reportable 11/30/21 01:01 Hem Pathologist Commnt Sent to pathology 11/30/21 01:01 Sodium 142 mmol/L (137-145) 11/30/21 01:01 Potassium 3.6 mmol/L (3.6-5.0) 11/30/21 01:01 Chloride 107.7 mmol/L (98-107) H 11/30/21 01:01 Carbon Dioxide 20 mmol/L (22-30) L 11/30/21 01:01 Anion Gap 18 mmol/L 11/30/21 01:01 BUN 11 mg/dL (9-20) 11/30/21 01:01 Creatinine 0.7 mg/dL (0.8-1.3) L 11/30/21 01:01 Estimated GFR > 60 ml/min 11/30/21 01:01 BUN/Creatinine Ratio 16 % 11/30/21 01:01 Glucose 100 mg/dL (75-100) 11/30/21 01:01 Hemoglobin A1c 5.1 % (4-6) 11/30/21 01:01 Calcium 7.7 mg/dL (8.4-10.2) L 11/30/21 01:01 Total Bilirubin 0.60 mg/dL (0.1-1.2) 11/30/21 01:01 AST 37 units/L (5-40) 11/30/21 01:01 ALT 56 units/L (7-56) 11/30/21 01:01 Alkaline Phosphatase 121 units/L (35-129) 11/30/21 01:01 Total Protein 5.6 g/dL (6.3-8.2) L 11/30/21 01:01 Albumin 3.4 g/dL (3.9-5) L 11/30/21 01:01 Albumin/Globulin Ratio 1.5 % 11/30/21 01:01 Triglycerides 104 mg/dL (2-149) 11/30/21 01:01 Cholesterol 117 mg/dL (50-199) 11/30/21 01:01 LDL Cholesterol Direct 62 mg/dL (50-130) 11/30/21 01:01 HDL Cholesterol 37 mg/dL (40-59) L 11/30/21 01:01 Cholesterol/HDL Ratio 3.16 % 11/30/21 01:01 TSH 1.950 mlU/mL (0.270-4.200) 11/30/21 01:01 Last Vital Signs Temp 98.7 F 12/02/21 19:57 Pulse 76 12/02/21 21:03 Resp 18 12/03/21 06:16 BP 123/84 12/02/21 19:57 Pulse Ox 98 12/02/21 21:02
[2021-12-03] MEDS: BUDESONIDE 0.5 MG/2 ML NEBU IH SCH ×2 (18:44→19:51)
[2021-12-03] MEDS: ARFORMOTEROL 15 MCG/2 ML NEBU IH SCH ×2 (18:44→19:51)
[2021-12-03] MEDS: MELATONIN 5 MG TAB PO PRN (20:42)
[2021-12-03] MEDS: rOPINIRole 1 MG TAB PO SCH (21:29)
[2021-12-03] MEDS: TEMAZEPAM 15 MG CAP PO SCH (21:29)
[2021-12-04] MEDS: LEVOTHYROXINE 75 MCG TAB PO SCH (05:46)
[2021-12-04] MEDS: ARFORMOTEROL 15 MCG/2 ML NEBU IH SCH ×2 (07:37→20:24)
[2021-12-04] MEDS: BUDESONIDE 0.5 MG/2 ML NEBU IH SCH ×2 (07:37→20:24)
[2021-12-04] MEDS: clonazePAM 0.5 MG TAB PO SCH ×3 (09:10→20:16)
[2021-12-04] MEDS: NICOTINE 21 MG/24 HR PATCH TD SCH (09:10)
[2021-12-04] MEDS: amLODIPine 10 MG TAB PO SCH (09:10)
[2021-12-04] MEDS: FLUoxetine 20 MG CAP PO SCH (09:11)
[2021-12-04] MEDS: PANTOPRAZOLE 40 MG TAB PO SCH (09:11)
[2021-12-04] MEDS: ZIPRASIDONE 40 MG CAP PO SCH (09:13)
--- NOTE | 2021-12-04 09:24 | Progress Note ---
Subjective Date of service: 12/04/21 Principal diagnosis: MDD Subjective Comment: 12/04: The patient was seen today. He states that he is not doing well; worried about his . The patient is requesting for PRN Injection;he seems to be med seeking. He states "I'm suicidal, if they hurt my I'll be homicidal." The patient denies hallucinations. 12/03: The patient was seen today. He states he is doing well. He continues to endorse depression rating as 7/10. He states sleep is better. He states that his was missing and he found him yesterday in a " trauma unit in [place]." The patient reports having suicidal ideation with no plan " not here." he denies hallucinations. 12/02: The patient was seen today. He thanks me for treating him. He says he usually doesn't like vistaril but it has been helping him to sleep well. He sti ll endorses SI but denies a plan. He says his is missing and he would like to speak with the SW. 12/01 The patient was seen today. He says she is not good. He says he didn't sleep well. The patient says he's very anxious and has a headache. He says he's used to having a high dose of xanax at 8mg daily. I inform the patient that I would increase his klonopin, but will not give 8mg daily. He is in agreement with the plan. He also says he still feels SI. He denies a plan. The patient denies hallucinations of any kind. REVIEW OF SYSTEMS Constitutional: Negative for weight loss ENT: Negative for stridor Respiratory: Negative for cough or hemoptysis All other systems reviewed and are negative MENTAL STATUS EXAMINATION General Appearance and Behavior: Age appropriate, good hygiene, wearing appropriate clothes, good eye contact, anxious, cooperative Cooperation: Participating/engaged, but Guarded Psychomotor Behavior: Psychomotor normal Mood: Depressed, angry Affect and affective range: congruent with stated mood Thought Process: goal directed Thought Content: suicidal Speech: normal tone and pace Suicidal Ideation: Yes Homicidal Ideation: Denies Hallucinations: Denies Delusions: None elicited Impulse Control: Limited Insight and Judgment: Poor insight and judgment Memory: Limited Attention: attentive Orientation: Alert, oriented Assessment and Plan Bipolar Disorder Generalized Anxiety Disorder Treatment Plan Patient admitted for inpatient psychiatric evaluation, medication adjustment and close monitoring The patient's behavior, mood, sleep and appetite will be closely monitored. Patient enrolled in individual and group therapeutic sessions and encouraged to attend. Patient provided with a safe and structured environment. Patient's physical health needs will be addressed by the Hospitalist. Hospitalist Consulted Labs including CBC, CMP, Lipid profile and Hemoglobin A1C levels ordered for baseline reference Social Assessment will be completed and the Care Rep will work with patient and family to ensure a suitable and safe disposition Medication adjustment will be made as clinically indicated Continue current meds Usual Wellness Yarsanism/Preservation: - Start Trazodone 50 mg po QHS & 50 mg po QHS PRN between 10 PM & 2 AM for insomnia - Start Melatonin 5 mg po QHS to promote circadian rhythm The patient agreed on the treatment plan, understood the risk, benefit, altern ative treatment, potential consequence of no treatment, and gave informed consent. Estimated days: 1 Post hospital care: primary care provider, psychiatric provider Case staffed with Dr. Combs Medications and Allergies Medications and Allergies Allergies Allergy/AdvReac Type Severity Reaction Status Date / Time Penicillins Allergy Unknown Verified 07/05/15 18:37 Home Medications Medication Instructions Recorded Confirmed Last Taken Type FLUoxetine HCL [PROzac] 80 mg PO QDAY 07/05/15 11/30/21 07/04/15 History ALPRAZolam [Xanax TAB] 2 mg PO Q8H PRN 11/30/21 11/30/21 Unknown History Albuterol Sulfate [Proair 90 mcg IH Q6HR PRN 11/30/21 11/30/21 Unknown History Respiclick] Dextroamphetamine/Amphetami(Nf 30 mg PO 0600,1800 11/30/21 11/30/21 Unknown History [Amphetamine Salts (Nf)] Fluticasone/Umeclidin/Vilanter 1 each IH DAILY 11/30/21 11/30/21 Unknown History [Trelegy Ellipta 100-62.5-25] Levothyroxine [Synthroid] 75 mcg PO QAM 11/30/21 11/30/21 Unknown History Pantoprazole [Protonix] 40 mg PO QDAY 11/30/21 11/30/21 Unknown History Temazepam [Restoril] 30 mg PO QHS 11/30/21 11/30/21 Unknown History Ziprasidone HCl [Geodon] 80 mg PO DAILY 11/30/21 11/30/21 Unknown History amLODIPine [Norvasc] 10 mg PO DAILY 11/30/21 11/30/21 Unknown History rOPINIRole [Requip] 1 mg PO QHS 11/30/21 11/30/21 Unknown History Active Meds: Active Medications Acetaminophen (Acetaminophen 325 Mg Tab) 650 mg PO Q6H PRN PRN Reason: Pain, Mild (1-3) Last Admin: 12/03/21 06:16 Dose: 650 mg Albuterol (Albuterol 2.5 Mg/3 Ml Nebu) 2.5 mg IH Q4HRT PRN PRN Reason: Shortness Of Breath Amlodipine Besylate (Amlodipine 10 Mg Tab) 10 mg PO DAILY [facility] Last Admin: 12/04/21 09:10 Dose: 10 mg Arformoterol Tartrate (Arformoterol 15 Mcg/2 Ml Nebu) 15 mcg IH Q12HRT [facility] Last Admin: 12/04/21 07:37 Dose: 15 mcg Budesonide (Budesonide 0.5 Mg/2 Ml Nebu) 0.5 mg IH Q12HRT [facility] Last Admin: 12/04/21 07:37 Dose: 0.5 mg Clonazepam (Clonazepam 0.5 Mg Tab) 1 mg PO TID [facility] Last Admin: 12/04/21 09:10 Dose: 1 mg Fluoxetine HCl (Fluoxetine 20 Mg Cap) 80 mg PO QDAY [facility] Last Admin: 12/04/21 09:11 Dose: 80 mg Hydroxyzine Pamoate (Hydroxyzine Pamoate 50 Mg Cap) 50 mg PO BID [facility] Last Admin: 12/04/21 09:10 Dose: 50 mg Levothyroxine Sodium (Levothyroxine 75 Mcg Tab) 75 mcg PO DAILY@0600 [facility] Last Admin: 12/04/21 05:46 Dose: 75 mcg Melatonin (Melatonin 5 Mg Tab) 10 mg PO QHS PRN PRN Reason: Sleep Last Admin: 12/03/21 20:42 Dose: 10 mg Miscellaneous Medication (Dextroamphetamine/Amphetamine) 30 mg PO 0600,1800 [facility] Miscellaneous Medication (Fluticasone/Umeclidin/Vilanter [Trelegy Ellipta 100-62.5-25]) 1 each NS DAILY [facility] Nicotine (Nicotine 21 Mg/24 Hr Patch) 21 mg TD QDAY [facility] Last Admin: 12/04/21 09:10 Dose: 21 mg Pantoprazole Sodium (Pantoprazole 40 Mg Tab) 40 mg PO QDAY [facility] Last Admin: 12/04/21 09:11 Dose: 40 mg Ropinirole HCl (Ropinirole 1 Mg Tab) 1 mg PO QHS [facility] Last Admin: 12/03/21 21:29 Dose: 1 mg Temazepam (Temazepam 15 Mg Cap) 30 mg PO QHS [facility] Last Admin: 12/03/21 21:29 Dose: 30 mg Ziprasidone (Ziprasidone 40 Mg Cap) 80 mg PO DAILY [facility] Last Admin: 12/04/21 09:13 Dose: Not Given Results - Results Labs/Vitals: Laboratory Last Values WBC 4.5 K/mm3 (4.5-11.0) 11/30/21 01:01 RBC 4.27 M/mm3 (3.65-5.03) 11/30/21 01:01 Hgb 11.9 gm/dl (11.8-15.2) 11/30/21 01:01 Hct 36.9 % (35.5-45.6) 11/30/21 01:01 MCV 86 fl (84-94) 11/30/21 01:01 MCH 28 pg (28-32) 11/30/21 01:01 MCHC 32 % (32-34) 11/30/21 01:01 RDW 16.9 % (13.2-15.2) H 11/30/21 01:01 Plt Count 153 K/mm3 (140-440) 11/30/21 01:01 Add Manual Diff Complete 11/30/21 01:01 Total Counted 100 11/30/21 01:01 Seg Neuts % (Manual) 34.0 % (40.0-70.0) L 11/30/21 01:01 Band Neutrophils % 0 % 11/30/21 01:01 Lymphocytes % (Manual) 48.0 % (13.4-35.0) H 11/30/21 01:01 Reactive Lymphs % (Man) 0 % 11/30/21 01:01 Monocytes % (Manual) 7.0 % (0.0-7.3) 11/30/21 01:01 Eosinophils % (Manual) 11.0 % (0.0-4.3) H 11/30/21 01:01 Basophils % (Manual) 0 % (0.0-1.8) 11/30/21 01:01 Metamyelocytes % 0 % 11/30/21 01:01 Myelocytes % 0 % 11/30/21 01:01 Promyelocytes % 0 % 11/30/21 01:01 Blast Cells % 0 % 11/30/21 01:01 Nucleated RBC % Not Reportable 11/30/21 01:01 Seg Neutrophils # Man 1.5 K/mm3 (1.8-7.7) L 11/30/21 01:01 Band Neutrophils # 0.0 K/mm3 11/30/21 01:01 Lymphocytes # (Manual) 2.2 K/mm3 (1.2-5.4) 11/30/21 01:01 Abs React Lymphs (Man) 0.0 K/mm3 11/30/21 01:01 Monocytes # (Manual) 0.3 K/mm3 (0.0-0.8) 11/30/21 01:01 Eosinophils # (Manual) 0.5 K/mm3 (0.0-0.4) H 11/30/21 01:01 Basophils # (Manual) 0.0 K/mm3 (0.0-0.1) 11/30/21 01:01 Metamyelocytes # 0.0 K/mm3 11/30/21 01:01 Myelocytes # 0.0 K/mm3 11/30/21 01:01 Promyelocytes # 0.0 K/mm3 11/30/21 01:01 Blast Cells # 0.0 K/mm3 11/30/21 01:01 Pathologist Review 11/30/21 01:01 WBC Morphology Not Reportable 11/30/21 01:01 Hypersegmented Neuts Not Reportable 11/30/21 01:01 Hyposegmented Neuts Not Reportable 11/30/21 01:01 Hypogranular Neuts Not Reportable 11/30/21 01:01 Smudge Cells Not Reportable 11/30/21 01:01 Toxic Granulation Not Reportable 11/30/21 01:01 Toxic Vacuolation Not Reportable 11/30/21 01:01 Dohle Bodies Not Reportable 11/30/21 01:01 Pelger-Huet Anomaly Not Reportable 11/30/21 01:01 Sohail Rods Not Reportable 11/30/21 01:01 Platelet Estimate Consistent w auto 11/30/21 01:01 Clumped Platelets Not Reportable 11/30/21 01:01 Plt Clumps, EDTA Not Reportable 11/30/21 01:01 Large Platelets Not Reportable 11/30/21 01:01 Giant Platelets Not Reportable 11/30/21 01:01 Platelet Satelliting Not Reportable 11/30/21 01:01 Plt Morphology Comment Not Reportable 11/30/21 01:01 RBC Morphology Not Reportable 11/30/21 01:01 Dimorphic RBCs Not Reportable 11/30/21 01:01 Polychromasia Not Reportable 11/30/21 01:01 Hypochromasia Not Reportable 11/30/21 01:01 Poikilocytosis Not Reportable 11/30/21 01:01 Anisocytosis 1+ 11/30/21 01:01 Microcytosis 1+ 11/30/21 01:01 Macrocytosis Not Reportable 11/30/21 01:01 Spherocytes Not Reportable 11/30/21 01:01 Pappenheimer Bodies Not Reportable 11/30/21 01:01 Sickle Cells Not Reportable 11/30/21 01:01 Target Cells Not Reportable 11/30/21 01:01 Tear Drop Cells Not Reportable 11/30/21 01:01 Ovalocytes Not Reportable 11/30/21 01:01 Helmet Cells Not Reportable 11/30/21 01:01 [place] Bodies Not Reportable 11/30/21 01:01 [place] Rings Not Reportable 11/30/21 01:01 [place] Cells Not Reportable 11/30/21 01:01 Bite Cells Not Reportable 11/30/21 01:01 Crenated Cell Not Reportable 11/30/21 01:01 Elliptocytes Not Reportable 11/30/21 01:01 Acanthocytes (Spur) Not Reportable 11/30/21 01:01 Rouleaux 1+ 11/30/21 01:01 Hemoglobin C Crystals Not Reportable 11/30/21 01:01 Schistocytes Not Reportable 11/30/21 01:01 Malaria parasites Not Reportable 11/30/21 01:01 Sunday Bodies Not Reportable 11/30/21 01:01 Hem Pathologist Commnt Sent to pathology 11/30/21 01:01 Sodium 142 mmol/L (137-145) 11/30/21 01:01 Potassium 3.6 mmol/L (3.6-5.0) 11/30/21 01:01 Chloride 107.7 mmol/L (98-107) H 11/30/21 01:01 Carbon Dioxide 20 mmol/L (22-30) L 11/30/21 01:01 Anion Gap 18 mmol/L 11/30/21 01:01 BUN 11 mg/dL (9-20) 11/30/21 01:01 Creatinine 0.7 mg/dL (0.8-1.3) L 11/30/21 01:01 Estimated GFR > 60 ml/min 11/30/21 01:01 BUN/Creatinine Ratio 16 % 11/30/21 01:01 Glucose 100 mg/dL (75-100) 11/30/21 01:01 Hemoglobin A1c 5.1 % (4-6) 11/30/21 01:01 Calcium 7.7 mg/dL (8.4-10.2) L 11/30/21 01:01 Total Bilirubin 0.60 mg/dL (0.1-1.2) 11/30/21 01:01 AST 37 units/L (5-40) 11/30/21 01:01 ALT 56 units/L (7-56) 11/30/21 01:01 Alkaline Phosphatase 121 units/L (35-129) 11/30/21 01:01 Total Protein 5.6 g/dL (6.3-8.2) L 11/30/21 01:01 Albumin 3.4 g/dL (3.9-5) L 11/30/21 01:01 Albumin/Globulin Ratio 1.5 % 11/30/21 01:01 Triglycerides 104 mg/dL (2-149) 11/30/21 01:01 Cholesterol 117 mg/dL (50-199) 11/30/21 01:01 LDL Cholesterol Direct 62 mg/dL (50-130) 11/30/21 01:01 HDL Cholesterol 37 mg/dL (40-59) L 11/30/21 01:01 Cholesterol/HDL Ratio 3.16 % 11/30/21 01:01 TSH 1.950 mlU/mL (0.270-4.200) 11/30/21 01:01 Last Vital Signs Temp 98.5 F 12/04/21 06:40 Pulse 74 12/04/21 09:10 Resp 16 12/04/21 07:37 BP 110/70 12/04/21 09:10 Pulse Ox 95 12/04/21 07:37
--- NOTE | 2021-12-04 13:57 | Progress Note ---
Assessment and Plan - Patient Problems (1) Vascular dementia with behavioral disturbance Current Visit: Yes Status: Acute Plan to address problem: For prompt, verbal redirection, benzodiazepine therapy as clinically indicated. (2) Cerebral atherosclerosis Current Visit: Yes Status: Acute Plan to address problem: Risk factor reduction therapy, antiplatelet therapy as clinically indicated. (3) Hypertension Current Visit: Yes Status: Acute Qualifiers: Hypertension type: primary hypertension Qualified Code(s): I10 - Essential (primary) hypertension Plan to address problem: Monitor blood pressure every shift, continue medical management (4) GERD (gastroesophageal reflux disease) Current Visit: Yes Status: Acute Qualifiers: Esophagitis presence: without esophagitis Qualified Code(s): K21.9 - Gastro-esophageal reflux disease without esophagitis Plan to address problem: PPI therapy, supportive care. Jessamine diet (5) Hypothyroidism Current Visit: Yes Status: Acute Plan to address problem: Continue Synthroid therapy, supportive care. (6) MDD (major depressive disorder) Current Visit: Yes Status: Acute Qualifiers: Major depression episode severity: unspecified Plan to address problem: Continue medical management, supportive care, cognitive behavioral therapy. (7) OC (generalized anxiety disorder) Current Visit: Yes Status: Acute Plan to address problem: Benzodiazepine therapy as clinic indicated. (8) Advance care planning Current Visit: Yes Status: Acute Plan to address problem: Disease education conducted, care plan discussed, diagnoses discussed, prognosis discussed, patient is full code. +30 minutes. History Interval history: 61 YO Male with Vascular Dementia with Behavioral Disturbance, Cerebral Atherosclerosis, COPD, Mild Intermittent Asthma, GERD, Hypothyroidism, HTN, OC, MDD admitted [facility] for psychiatric [facility]. Consult placed by Dr. Orta for medical management. Patient seen and evaluated in the recreation room. No reported nursing events. Patient denies pain. Patient remains at baseline level of cognition and function. Hospitalist Physical - Constitutional Vitals: Temp Pulse Resp BP Pulse Ox 98.5 F 74 16 110/70 95 12/04/21 06:40 12/04/21 09:10 12/04/21 07:37 12/04/21 09:10 12/04/21 07:37 General appearance: Present: no acute distress - EENT Eyes: Present: PERRL ENT: hearing intact - Neck Neck: Present: supple - Respiratory Respiratory effort: normal Respiratory: bilateral: CTA - Cardiovascular Rhythm: regular Heart Sounds: Present: S1 & S2 - Extremities Extremities: no ischemia Peripheral Pulses: within normal limits - Abdominal General gastrointestinal: soft, non-tender, non-distended - Integumentary Integumentary: Present: clear, dry - Psychiatric Psychiatric: cooperative - Neurologic Neurologic: CNII-XII intact Results - Labs CBC & Chem 7: 11/30/21 01:01 11/30/21 01:01 Labs: Laboratory Last Values WBC 4.5 K/mm3 (4.5-11.0) 11/30/21 01:01 RBC 4.27 M/mm3 (3.65-5.03) 11/30/21 01:01 Hgb 11.9 gm/dl (11.8-15.2) 11/30/21 01:01 Hct 36.9 % (35.5-45.6) 11/30/21 01:01 MCV 86 fl (84-94) 11/30/21 01:01 MCH 28 pg (28-32) 11/30/21 01:01 MCHC 32 % (32-34) 11/30/21 01:01 RDW 16.9 % (13.2-15.2) H 11/30/21 01:01 Plt Count 153 K/mm3 (140-440) 11/30/21 01:01 Add Manual Diff Complete 11/30/21 01:01 Total Counted 100 11/30/21 01:01 Seg Neuts % (Manual) 34.0 % (40.0-70.0) L 11/30/21 01:01 Band Neutrophils % 0 % 11/30/21 01:01 Lymphocytes % (Manual) 48.0 % (13.4-35.0) H 11/30/21 01:01 Reactive Lymphs % (Man) 0 % 11/30/21 01:01 Monocytes % (Manual) 7.0 % (0.0-7.3) 11/30/21 01:01 Eosinophils % (Manual) 11.0 % (0.0-4.3) H 11/30/21 01:01 Basophils % (Manual) 0 % (0.0-1.8) 11/30/21 01:01 Metamyelocytes % 0 % 11/30/21 01:01 Myelocytes % 0 % 11/30/21 01:01 Promyelocytes % 0 % 11/30/21 01:01 Blast Cells % 0 % 11/30/21 01:01 Nucleated RBC % Not Reportable 11/30/21 01:01 Seg Neutrophils # Man 1.5 K/mm3 (1.8-7.7) L 11/30/21 01:01 Band Neutrophils # 0.0 K/mm3 11/30/21 01:01 Lymphocytes # (Manual) 2.2 K/mm3 (1.2-5.4) 11/30/21 01:01 Abs React Lymphs (Man) 0.0 K/mm3 11/30/21 01:01 Monocytes # (Manual) 0.3 K/mm3 (0.0-0.8) 11/30/21 01:01 Eosinophils # (Manual) 0.5 K/mm3 (0.0-0.4) H 11/30/21 01:01 Basophils # (Manual) 0.0 K/mm3 (0.0-0.1) 11/30/21 01:01 Metamyelocytes # 0.0 K/mm3 11/30/21 01:01 Myelocytes # 0.0 K/mm3 11/30/21 01:01 Promyelocytes # 0.0 K/mm3 11/30/21 01:01 Blast Cells # 0.0 K/mm3 11/30/21 01:01 Pathologist Review 11/30/21 01:01 WBC Morphology Not Reportable 11/30/21 01:01 Hypersegmented Neuts Not Reportable 11/30/21 01:01 Hyposegmented Neuts Not Reportable 11/30/21 01:01 Hypogranular Neuts Not Reportable 11/30/21 01:01 Smudge Cells Not Reportable 11/30/21 01:01 Toxic Granulation Not Reportable 11/30/21 01:01 Toxic Vacuolation Not Reportable 11/30/21 01:01 Dohle Bodies Not Reportable 11/30/21 01:01 Pelger-Huet Anomaly Not Reportable 11/30/21 01:01 Sohail Rods Not Reportable 11/30/21 01:01 Platelet Estimate Consistent w auto 11/30/21 01:01 Clumped Platelets Not Reportable 11/30/21 01:01 Plt Clumps, EDTA Not Reportable 11/30/21 01:01 Large Platelets Not Reportable 11/30/21 01:01 Giant Platelets Not Reportable 11/30/21 01:01 Platelet Satelliting Not Reportable 11/30/21 01:01 Plt Morphology Comment Not Reportable 11/30/21 01:01 RBC Morphology Not Reportable 11/30/21 01:01 Dimorphic RBCs Not Reportable 11/30/21 01:01 Polychromasia Not Reportable 11/30/21 01:01 Hypochromasia Not Reportable 11/30/21 01:01 Poikilocytosis Not Reportable 11/30/21 01:01 Anisocytosis 1+ 11/30/21 01:01 Microcytosis 1+ 11/30/21 01:01 Macrocytosis Not Reportable 11/30/21 01:01 Spherocytes Not Reportable 11/30/21 01:01 Pappenheimer Bodies Not Reportable 11/30/21 01:01 Sickle Cells Not Reportable 11/30/21 01:01 Target Cells Not Reportable 11/30/21 01:01 Tear Drop Cells Not Reportable 11/30/21 01:01 Ovalocytes Not Reportable 11/30/21 01:01 Helmet Cells Not Reportable 11/30/21 01:01 [place] Bodies Not Reportable 11/30/21 01:01 [place] Rings Not Reportable 11/30/21 01:01 [place] Cells Not Reportable 11/30/21 01:01 Bite Cells Not Reportable 11/30/21 01:01 Crenated Cell Not Reportable 11/30/21 01:01 Elliptocytes Not Reportable 11/30/21 01:01 Acanthocytes (Spur) Not Reportable 11/30/21 01:01 Rouleaux 1+ 11/30/21 01:01 Hemoglobin C Crystals Not Reportable 11/30/21 01:01 Schistocytes Not Reportable 11/30/21 01:01 Malaria parasites Not Reportable 11/30/21 01:01 Sunday Bodies Not Reportable 11/30/21 01:01 Hem Pathologist Commnt Sent to pathology 11/30/21 01:01 Sodium 142 mmol/L (137-145) 11/30/21 01:01 Potassium 3.6 mmol/L (3.6-5.0) 11/30/21 01:01 Chloride 107.7 mmol/L (98-107) H 11/30/21 01:01 Carbon Dioxide 20 mmol/L (22-30) L 11/30/21 01:01 Anion Gap 18 mmol/L 11/30/21 01:01 BUN 11 mg/dL (9-20) 11/30/21 01:01 Creatinine 0.7 mg/dL (0.8-1.3) L 11/30/21 01:01 Estimated GFR > 60 ml/min 11/30/21 01:01 BUN/Creatinine Ratio 16 % 11/30/21 01:01 Glucose 100 mg/dL (75-100) 11/30/21 01:01 Hemoglobin A1c 5.1 % (4-6) 11/30/21 01:01 Calcium 7.7 mg/dL (8.4-10.2) L 11/30/21 01:01 Total Bilirubin 0.60 mg/dL (0.1-1.2) 11/30/21 01:01 AST 37 units/L (5-40) 11/30/21 01:01 ALT 56 units/L (7-56) 11/30/21 01:01 Alkaline Phosphatase 121 units/L (35-129) 11/30/21 01:01 Total Protein 5.6 g/dL (6.3-8.2) L 11/30/21 01:01 Albumin 3.4 g/dL (3.9-5) L 11/30/21 01:01 Albumin/Globulin Ratio 1.5 % 11/30/21 01:01 Triglycerides 104 mg/dL (2-149) 11/30/21 01:01 Cholesterol 117 mg/dL (50-199) 11/30/21 01:01 LDL Cholesterol Direct 62 mg/dL (50-130) 11/30/21 01:01 HDL Cholesterol 37 mg/dL (40-59) L 11/30/21 01:01 Cholesterol/HDL Ratio 3.16 % 11/30/21 01:01 TSH 1.950 mlU/mL (0.270-4.200) 11/30/21 01:01 Perez/IV: Voiding Method Toilet Active Medications - Current Medications Current Medications: Generic Name Dose Route Start Last Admin Trade Name Freq PRN Reason Stop Dose Admin Acetaminophen 650 mg 12/01/21 09:30 12/03/21 06:16 Acetaminophen 325 Mg Tab PO 650 mg Q6H PRN Administration Pain, Mild (1-3) Albuterol 2.5 mg 11/30/21 16:00 Albuterol 2.5 Mg/3 Ml Nebu IH Q4HRT PRN Shortness Of Breath Amlodipine Besylate 10 mg 11/30/21 12:00 12/04/21 09:10 Amlodipine 10 Mg Tab PO 10 mg DAILY [facility] Administration Arformoterol Tartrate 15 mcg 12/02/21 13:00 12/04/21 07:37 Arformoterol 15 Mcg/2 Ml Nebu IH 15 mcg Q12HRT [facility]TIS Administration Budesonide 0.5 mg 12/02/21 13:00 12/04/21 07:37 Budesonide 0.5 Mg/2 Ml Nebu IH 0.5 mg Q12HRT [facility]TIS Administration Clonazepam 1 mg 12/01/21 14:00 12/04/21 09:10 Clonazepam 0.5 Mg Tab PO 1 mg TID CURTIS Administration Fluoxetine HCl 80 mg 11/30/21 13:00 12/04/21 09:11 Fluoxetine 20 Mg Cap PO 80 mg QDAY [facility] Administration Hydroxyzine Pamoate 50 mg 12/01/21 11:00 12/04/21 09:10 Hydroxyzine Pamoate 50 Mg Cap PO 50 mg BID [facility] Administration Levothyroxine Sodium 75 mcg 12/01/21 10:00 12/04/21 05:46 Levothyroxine 75 Mcg Tab PO 75 mcg DAILY@0600 [facility] Administration Melatonin 10 mg 12/01/21 22:00 12/03/21 20:42 Melatonin 5 Mg Tab PO 10 mg QHS PRN Administration Sleep Miscellaneous Medication 30 mg 11/30/21 18:00 Dextroamphetamine/Amphetamine PO 0600,1800 [facility] Miscellaneous Medication 1 each 12/01/21 10:00 Fluticasone/Umeclidin/Vilanter [Trelegy Ellipta 100-62.5-25] NS DAILY [facility] Nicotine 21 mg 12/04/21 10:00 12/04/21 09:10 Nicotine 21 Mg/24 Hr Patch TD 21 mg QDAY CURT[facility] Administration Pantoprazole Sodium 40 mg 11/30/21 12:30 12/04/21 09:11 Pantoprazole 40 Mg Tab PO 40 mg QDAY CURT[facility] Administration Ropinirole HCl 1 mg 11/30/21 22:00 12/03/21 21:29 Ropinirole 1 Mg Tab PO 1 mg QHS CURTIS Administration Temazepam 30 mg 11/30/21 22:00 12/03/21 21:29 Temazepam 15 Mg Cap PO 30 mg QHS CURT[facility] Administration Ziprasidone 80 mg 11/30/21 12:30 12/04/21 09:13 Ziprasidone 40 Mg Cap PO Not Given DAILY CURTIS
[2021-12-04] MEDS: rOPINIRole 1 MG TAB PO SCH (21:27)
[2021-12-04] MEDS: TEMAZEPAM 15 MG CAP PO SCH (21:27)
[2021-12-05] MEDS: MELATONIN 5 MG TAB PO PRN (00:52)
[2021-12-05] MEDS: LEVOTHYROXINE 75 MCG TAB PO SCH (06:36)
[2021-12-05] MEDS: ARFORMOTEROL 15 MCG/2 ML NEBU IH SCH ×2 (08:21→19:29)
[2021-12-05] MEDS: BUDESONIDE 0.5 MG/2 ML NEBU IH SCH ×2 (08:22→19:29)
[2021-12-05] MEDS: clonazePAM 0.5 MG TAB PO SCH ×3 (09:15→20:16)
[2021-12-05] MEDS: ZIPRASIDONE 40 MG CAP PO SCH ×2 (09:16→09:22)
[2021-12-05] MEDS: amLODIPine 10 MG TAB PO SCH (09:16)
[2021-12-05] MEDS: PANTOPRAZOLE 40 MG TAB PO SCH (09:17)
[2021-12-05] MEDS: NICOTINE 21 MG/24 HR PATCH TD SCH (09:17)
[2021-12-05] MEDS: FLUoxetine 20 MG CAP PO SCH (09:18)
--- NOTE | 2021-12-05 09:37 | Progress Note ---
Subjective Date of service: 12/05/21 Principal diagnosis: MDD Subjective Comment: 12/05:The patient was seen today. He continues to endorse depression rates as 9/10. He reports not taking Geodon because " it was making me shake." He reports difficult with maintaining sleep. He reports having intermittent suicidal ideation, denies hallucinations. Decrease Geodon to 60mg po Daily and start Benztropine 0.5mg po BID, start Trazodone 50mg po QHS PRN for insomnia. 12/04: The patient was seen today. He states that he is not doing well; worried about his . The patient is requesting for PRN Injection;he seems to be med seeking. He states "I'm suicidal, if they hurt my I'll be homicidal." The patient denies hallucinations. 12/03: The patient was seen today. He states he is doing well. He continues to endorse depression rating as 7/10. He states sleep is better. He states that his was missing and he found him yesterday in a " trauma unit in [place]." The patient reports having suicidal ideation with no plan " not here." he denies hallucinations. 12/02: The patient was seen today. He thanks me for treating him. He says he usually doesn't like vistaril but it has been helping him to sleep well. He still endorses SI but denies a plan. He says his is missing and he would like to speak with the SW. 12/01 The patient was seen today. He says she is not good. He says he didn't sleep well. The patient says he's very anxious and has a headache. He says he's used to having a high dose of xanax at 8mg daily. I inform the patient that I would increase his klonopin, but will not give 8mg daily. He is in agreement with the plan. He also says he still feels SI. He denies a plan. The patient denies hallucinations of any kind. REVIEW OF SYSTEMS Constitutional: Negative for weight loss ENT: Negative for stridor Respiratory: Negative for cough or hemoptysis All other systems reviewed and are negative MENTAL STATUS EXAMINATION General Appearance and Behavior: Age appropriate, good hygiene, wearing appropriate clothes, good eye contact, anxious, cooperative Cooperation: Participating/engaged, but Guarded Psychomotor Behavior: Psychomotor normal Mood: Depressed Affect and affective range: congruent with stated mood Thought Process: goal directed Thought Content: suicidal Speech: normal tone and pace Suicidal Ideation: Yes, intermittent Homicidal Ideation: Denies Hallucinations: Denies Delusions: None elicited Impulse Control: Limited Insight and Judgment: Poor insight and judgment Memory: Limited Attention: attentive Orientation: Alert, oriented Assessment and Plan Bipolar Disorder Generalized Anxiety Disorder Treatment Plan Patient admitted for inpatient psychiatric evaluation, medication adjustment and close monitoring The patient's behavior, mood, sleep and appetite will be closely monitored. Patient enrolled in individual and group therapeutic sessions and encouraged to attend. Patient provided with a safe and structured environment. Patient's physical health needs will be addressed by the Hospitalist. Hospitalist Consulted Labs including CBC, CMP, Lipid profile and Hemoglobin A1C levels ordered for baseline reference Social Assessment will be completed and the Student Driving Instructor will work with patient and family to ensure a suitable and safe disposition Medication adjustment will be made as clinically indicated Continue current meds Usual Wellness Latter Day/Preservation: - Start Trazodone 50 mg po QHS & 50 mg po QHS PRN between 10 PM & 2 AM for insomnia - Start Melatonin 5 mg po QHS to promote circadian rhythm The patient agreed on the treatment plan, understood the risk, benefit, alternative treatment, potential consequence of no treatment, and gave informed consent. Estimated days: 1 Post hospital care: primary care provider, psychiatric provider Case staffed with Dr. Combs Medications and Allergies Medications and Allergies Allergies Allergy/AdvReac Type Severity Reaction Status Date / Time Penicillins Allergy Unknown Verified 07/05/15 18:37 Home Medications Medication Instructions Recorded Confirmed Last Taken Type FLUoxetine HCL [PROzac] 80 mg PO QDAY 07/05/15 11/30/21 07/04/15 History ALPRAZolam [Xanax TAB] 2 mg PO Q8H PRN 11/30/21 11/30/21 Unknown History Albuterol Sulfate [Proair 90 mcg IH Q6HR PRN 11/30/21 11/30/21 Unknown History Respiclick] Dextroamphetamine/Amphetami(Nf 30 mg PO 0600,1800 11/30/21 11/30/21 Unknown History [Amphetamine Salts (Nf)] Fluticasone/Umeclidin/Vilanter 1 each IH DAILY 11/30/21 11/30/21 Unknown History [Trelegy Ellipta 100-62.5-25] Levothyroxine [Synthroid] 75 mcg PO QAM 11/30/21 11/30/21 Unknown History Pantoprazole [Protonix] 40 mg PO QDAY 11/30/21 11/30/21 Unknown History Temazepam [Restoril] 30 mg PO QHS 11/30/21 11/30/21 Unknown History Ziprasidone HCl [Geodon] 80 mg PO DAILY 11/30/21 11/30/21 Unknown History amLODIPine [Norvasc] 10 mg PO DAILY 11/30/21 11/30/21 Unknown History rOPINIRole [Requip] 1 mg PO QHS 11/30/21 11/30/21 Unknown History Active Meds: Active Medications Acetaminophen (Acetaminophen 325 Mg Tab) 650 mg PO Q6H PRN PRN Reason: Pain, Mild (1-3) Last Admin: 12/03/21 06:16 Dose: 650 mg Albuterol (Albuterol 2.5 Mg/3 Ml Nebu) 2.5 mg IH Q4HRT PRN PRN Reason: Shortness Of Breath Amlodipine Besylate (Amlodipine 10 Mg Tab) 10 mg PO DAILY [facility] Last Admin: 12/05/21 09:16 Dose: 10 mg Arformoterol Tartrate (Arformoterol 15 Mcg/2 Ml Nebu) 15 mcg IH Q12HRT [facility] Last Admin: 12/05/21 08:21 Dose: Not Given Budesonide (Budesonide 0.5 Mg/2 Ml Nebu) 0.5 mg IH Q12HRT [facility] Last Admin: 12/05/21 08:22 Dose: Not Given Clonazepam (Clonazepam 0.5 Mg Tab) 1 mg PO TID [facility] Last Admin: 12/05/21 09:15 Dose: 1 mg Fluoxetine HCl (Fluoxetine 20 Mg Cap) 80 mg PO QDAY [facility] Last Admin: 12/05/21 09:18 Dose: 80 mg Hydroxyzine Pamoate (Hydroxyzine Pamoate 50 Mg Cap) 50 mg PO BID [facility] Last Admin: 12/05/21 09:17 Dose: 50 mg Levothyroxine Sodium (Levothyroxine 75 Mcg Tab) 75 mcg PO DAILY@0600 [facility] Last Admin: 12/05/21 06:36 Dose: 75 mcg Melatonin (Melatonin 5 Mg Tab) 10 mg PO QHS PRN PRN Reason: Sleep Last Admin: 12/05/21 00:52 Dose: 10 mg Miscellaneous Medication (Dextroamphetamine/Amphetamine) 30 mg PO 0600,1800 [facility] Miscellaneous Medication (Fluticasone/Umeclidin/Vilanter [Trelegy Ellipta 100-62.5-25]) 1 each NS DAILY [facility] Nicotine (Nicotine 21 Mg/24 Hr Patch) 21 mg TD QDAY [facility] Last Admin: 12/05/21 09:17 Dose: 21 mg Pantoprazole Sodium (Pantoprazole 40 Mg Tab) 40 mg PO QDAY [facility] Last Admin: 12/05/21 09:17 Dose: 40 mg Ropinirole HCl (Ropinirole 1 Mg Tab) 1 mg PO QHS [facility] Last Admin: 12/04/21 21:27 Dose: 1 mg Temazepam (Temazepam 15 Mg Cap) 30 mg PO QHS [facility] Last Admin: 12/04/21 21:27 Dose: 30 mg Ziprasidone (Ziprasidone 40 Mg Cap) 80 mg PO DAILY [facility] Last Admin: 12/05/21 09:22 Dose: Not Given Results - Results Labs/Vitals: Laboratory Last Values WBC 4.5 K/mm3 (4.5-11.0) 11/30/21 01:01 RBC 4.27 M/mm3 (3.65-5.03) 11/30/21 01:01 Hgb 11.9 gm/dl (11.8-15.2) 11/30/21 01:01 Hct 36.9 % (35.5-45.6) 11/30/21 01:01 MCV 86 fl (84-94) 11/30/21 01:01 MCH 28 pg (28-32) 11/30/21 01:01 MCHC 32 % (32-34) 11/30/21 01:01 RDW 16.9 % (13.2-15.2) H 11/30/21 01:01 Plt Count 153 K/mm3 (140-440) 11/30/21 01:01 Add Manual Diff Complete 11/30/21 01:01 Total Counted 100 11/30/21 01:01 Seg Neuts % (Manual) 34.0 % (40.0-70.0) L 11/30/21 01:01 Band Neutrophils % 0 % 11/30/21 01:01 Lymphocytes % (Manual) 48.0 % (13.4-35.0) H 11/30/21 01:01 Reactive Lymphs % (Man) 0 % 11/30/21 01:01 Monocytes % (Manual) 7.0 % (0.0-7.3) 11/30/21 01:01 Eosinophils % (Manual) 11.0 % (0.0-4.3) H 11/30/21 01:01 Basophils % (Manual) 0 % (0.0-1.8) 11/30/21 01:01 Metamyelocytes % 0 % 11/30/21 01:01 Myelocytes % 0 % 11/30/21 01:01 Promyelocytes % 0 % 11/30/21 01:01 Blast Cells % 0 % 11/30/21 01:01 Nucleated RBC % Not Reportable 11/30/21 01:01 Seg Neutrophils # Man 1.5 K/mm3 (1.8-7.7) L 11/30/21 01:01 Band Neutrophils # 0.0 K/mm3 11/30/21 01:01 Lymphocytes # (Manual) 2.2 K/mm3 (1.2-5.4) 11/30/21 01:01 Abs React Lymphs (Man) 0.0 K/mm3 11/30/21 01:01 Monocytes # (Manual) 0.3 K/mm3 (0.0-0.8) 11/30/21 01:01 Eosinophils # (Manual) 0.5 K/mm3 (0.0-0.4) H 11/30/21 01:01 Basophils # (Manual) 0.0 K/mm3 (0.0-0.1) 11/30/21 01:01 Metamyelocytes # 0.0 K/mm3 11/30/21 01:01 Myelocytes # 0.0 K/mm3 11/30/21 01:01 Promyelocytes # 0.0 K/mm3 11/30/21 01:01 Blast Cells # 0.0 K/mm3 11/30/21 01:01 Pathologist Review 11/30/21 01:01 WBC Morphology Not Reportable 11/30/21 01:01 Hypersegmented Neuts Not Reportable 11/30/21 01:01 Hyposegmented Neuts Not Reportable 11/30/21 01:01 Hypogranular Neuts Not Reportable 11/30/21 01:01 Smudge Cells Not Reportable 11/30/21 01:01 Toxic Granulation Not Reportable 11/30/21 01:01 Toxic Vacuolation Not Reportable 11/30/21 01:01 Dohle Bodies Not Reportable 11/30/21 01:01 Pelger-[place]uet Anomaly Not Reportable 11/30/21 01:01 Sohail Rods Not Reportable 11/30/21 01:01 Platelet Estimate Consistent w auto 11/30/21 01:01 Clumped Platelets Not Reportable 11/30/21 01:01 Plt Clumps, EDTA Not Reportable 11/30/21 01:01 Large Platelets Not Reportable 11/30/21 01:01 Giant Platelets Not Reportable 11/30/21 01:01 Platelet Satelliting Not Reportable 11/30/21 01:01 Plt Morphology Comment Not Reportable 11/30/21 01:01 RBC Morphology Not Reportable 11/30/21 01:01 Dimorphic RBCs Not Reportable 11/30/21 01:01 Polychromasia Not Reportable 11/30/21 01:01 Hypochromasia Not Reportable 11/30/21 01:01 Poikilocytosis Not Reportable 11/30/21 01:01 Anisocytosis 1+ 11/30/21 01:01 Microcytosis 1+ 11/30/21 01:01 Macrocytosis Not Reportable 11/30/21 01:01 Spherocytes Not Reportable 11/30/21 01:01 Pappenheimer Bodies Not Reportable 11/30/21 01:01 Sickle Cells Not Reportable 11/30/21 01:01 Target Cells Not Reportable 11/30/21 01:01 Tear Drop Cells Not Reportable 11/30/21 01:01 Ovalocytes Not Reportable 11/30/21 01:01 Helmet Cells Not Reportable 11/30/21 01:01 [place] Bodies Not Reportable 11/30/21 01:01 [place] Rings Not Reportable 11/30/21 01:01 [place] Cells Not Reportable 11/30/21 01:01 Bite Cells Not Reportable 11/30/21 01:01 Crenated Cell Not Reportable 11/30/21 01:01 Elliptocytes Not Reportable 11/30/21 01:01 Acanthocytes (Spur) Not Reportable 11/30/21 01:01 Rouleaux 1+ 11/30/21 01:01 Hemoglobin C Crystals Not Reportable 11/30/21 01:01 Schistocytes Not Reportable 11/30/21 01:01 Malaria parasites Not Reportable 11/30/21 01:01 Sunday Bodies Not Reportable 11/30/21 01:01 Hem Pathologist Commnt Sent to pathology 11/30/21 01:01 Sodium 142 mmol/L (137-145) 11/30/21 01:01 Potassium 3.6 mmol/L (3.6-5.0) 11/30/21 01:01 Chloride 107.7 mmol/L (98-107) H 11/30/21 01:01 Carbon Dioxide 20 mmol/L (22-30) L 11/30/21 01:01 Anion Gap 18 mmol/L 11/30/21 01:01 BUN 11 mg/dL (9-20) 11/30/21 01:01 Creatinine 0.7 mg/dL (0.8-1.3) L 11/30/21 01:01 Estimated GFR > 60 ml/min 11/30/21 01:01 BUN/Creatinine Ratio 16 % 11/30/21 01:01 Glucose 100 mg/dL (75-100) 11/30/21 01:01 Hemoglobin A1c 5.1 % (4-6) 11/30/21 01:01 Calcium 7.7 mg/dL (8.4-10.2) L 11/30/21 01:01 Total Bilirubin 0.60 mg/dL (0.1-1.2) 11/30/21 01:01 AST 37 units/L (5-40) 11/30/21 01:01 ALT 56 units/L (7-56) 11/30/21 01:01 Alkaline Phosphatase 121 units/L (35-129) 11/30/21 01:01 Total Protein 5.6 g/dL (6.3-8.2) L 11/30/21 01:01 Albumin 3.4 g/dL (3.9-5) L 11/30/21 01:01 Albumin/Globulin Ratio 1.5 % 11/30/21 01:01 Triglycerides 104 mg/dL (2-149) 11/30/21 01:01 Cholesterol 117 mg/dL (50-199) 11/30/21 01:01 LDL Cholesterol Direct 62 mg/dL (50-130) 11/30/21 01:01 HDL Cholesterol 37 mg/dL (40-59) L 11/30/21 01:01 Cholesterol/HDL Ratio 3.16 % 11/30/21 01:01 TSH 1.950 mlU/mL (0.270-4.200) 11/30/21 01:01 Last Vital Signs Temp 98.1 F 12/05/21 07:23 Pulse 82 12/05/21 09:16 Resp 16 12/05/21 07:23 BP 114/88 12/05/21 09:16 Pulse Ox 92 12/05/21 07:23
[2021-12-05] MEDS: ZIPRASIDONE 60 MG CAP PO SCH (10:42)
[2021-12-05] MEDS: BENZTROPINE 0.5 MG TAB PO SCH ×2 (10:42→21:26)
--- NOTE | 2021-12-05 20:03 | Progress Note ---
Assessment and Plan - Patient Problems (1) Vascular dementia with behavioral disturbance Current Visit: Yes Status: Acute Plan to address problem: For prompt, verbal redirection, benzodiazepine therapy as clinically indicated. (2) Cerebral atherosclerosis Current Visit: Yes Status: Acute Plan to address problem: Risk factor reduction therapy, antiplatelet therapy as clinically indicated. (3) Hypertension Current Visit: Yes Status: Acute Qualifiers: Hypertension type: primary hypertension Qualified Code(s): I10 - Essential (primary) hypertension Plan to address problem: Monitor blood pressure every shift, continue medical management (4) GERD (gastroesophageal reflux disease) Current Visit: Yes Status: Acute Qualifiers: Esophagitis presence: without esophagitis Qualified Code(s): K21.9 - Gastro-esophageal reflux disease without esophagitis Plan to address problem: PPI therapy, supportive care. [place] diet (5) Hypothyroidism Current Visit: Yes Status: Acute Plan to address problem: Continue Synthroid therapy, supportive care. (6) MDD (major depressive disorder) Current Visit: Yes Status: Acute Qualifiers: Major depression episode severity: unspecified Plan to address problem: Continue medical management, supportive care, cognitive behavioral therapy. (7) OC (generalized anxiety disorder) Current Visit: Yes Status: Acute Plan to address problem: Benzodiazepine therapy as clinic indicated. (8) Advance care planning Current Visit: Yes Status: Acute Plan to address problem: Disease education conducted, care plan discussed, diagnoses discussed, prognosis discussed, patient is full code. +30 minutes. History Interval history: 61 YO Male with Vascular Dementia with Behavioral Disturbance, Cerebral Atherosclerosis, COPD, Mild Intermittent Asthma, GERD, Hypothyroidism, HTN, OC, MDD [facility] for psychiatric [facility]. Consult placed by Dr. Orta for medical management. Patient seen and evaluated in the recreation room. No reported nursing events. Patient denies pain. Patient remains at baseline level of cognition and function. Hospitalist Physical - Constitutional Vitals: Temp Pulse Resp BP Pulse Ox 98.1 F 82 16 114/88 95 12/05/21 07:23 12/05/21 19:39 12/05/21 19:39 12/05/21 09:16 12/05/21 19:31 General appearance: Present: no acute distress - EENT Eyes: Present: PERRL ENT: hearing intact - Neck Neck: Present: supple - Respiratory Respiratory effort: normal Respiratory: bilateral: diminished - Cardiovascular Rhythm: regular Heart Sounds: Present: S1 & S2 - Extremities Extremities: no ischemia Peripheral Pulses: within normal limits - Abdominal General gastrointestinal: soft, non-tender, non-distended - Integumentary Integumentary: Present: clear, dry - Psychiatric Psychiatric: cooperative - Neurologic Neurologic: CNII-XII intact Results - Labs CBC & Chem 7: 11/30/21 01:01 11/30/21 01:01 Labs: Laboratory Last Values WBC 4.5 K/mm3 (4.5-11.0) 11/30/21 01:01 RBC 4.27 M/mm3 (3.65-5.03) 11/30/21 01:01 Hgb 11.9 gm/dl (11.8-15.2) 11/30/21 01:01 Hct 36.9 % (35.5-45.6) 11/30/21 01:01 MCV 86 fl (84-94) 11/30/21 01:01 MCH 28 pg (28-32) 11/30/21 01:01 MCHC 32 % (32-34) 11/30/21 01:01 RDW 16.9 % (13.2-15.2) H 11/30/21 01:01 Plt Count 153 K/mm3 (140-440) 11/30/21 01:01 Add Manual Diff Complete 11/30/21 01:01 Total Counted 100 11/30/21 01:01 Seg Neuts % (Manual) 34.0 % (40.0-70.0) L 11/30/21 01:01 Band Neutrophils % 0 % 11/30/21 01:01 Lymphocytes % (Manual) 48.0 % (13.4-35.0) H 11/30/21 01:01 Reactive Lymphs % (Man) 0 % 11/30/21 01:01 Monocytes % (Manual) 7.0 % (0.0-7.3) 11/30/21 01:01 Eosinophils % (Manual) 11.0 % (0.0-4.3) H 11/30/21 01:01 Basophils % (Manual) 0 % (0.0-1.8) 11/30/21 01:01 Metamyelocytes % 0 % 11/30/21 01:01 Myelocytes % 0 % 11/30/21 01:01 Promyelocytes % 0 % 11/30/21 01:01 Blast Cells % 0 % 11/30/21 01:01 Nucleated RBC % Not Reportable 11/30/21 01:01 Seg Neutrophils # Man 1.5 K/mm3 (1.8-7.7) L 11/30/21 01:01 Band Neutrophils # 0.0 K/mm3 11/30/21 01:01 Lymphocytes # (Manual) 2.2 K/mm3 (1.2-5.4) 11/30/21 01:01 Abs React Lymphs (Man) 0.0 K/mm3 11/30/21 01:01 Monocytes # (Manual) 0.3 K/mm3 (0.0-0.8) 11/30/21 01:01 Eosinophils # (Manual) 0.5 K/mm3 (0.0-0.4) H 11/30/21 01:01 Basophils # (Manual) 0.0 K/mm3 (0.0-0.1) 11/30/21 01:01 Metamyelocytes # 0.0 K/mm3 11/30/21 01:01 Myelocytes # 0.0 K/mm3 11/30/21 01:01 Promyelocytes # 0.0 K/mm3 11/30/21 01:01 Blast Cells # 0.0 K/mm3 11/30/21 01:01 Pathologist Review 11/30/21 01:01 WBC Morphology Not Reportable 11/30/21 01:01 Hypersegmented Neuts Not Reportable 11/30/21 01:01 Hyposegmented Neuts Not Reportable 11/30/21 01:01 Hypogranular Neuts Not Reportable 11/30/21 01:01 Smudge Cells Not Reportable 11/30/21 01:01 Toxic Granulation Not Reportable 11/30/21 01:01 Toxic Vacuolation Not Reportable 11/30/21 01:01 Dohle Bodies Not Reportable 11/30/21 01:01 Pelger-Huet Anomaly Not Reportable 11/30/21 01:01 Sohail Rods Not Reportable 11/30/21 01:01 Platelet Estimate Consistent w auto 11/30/21 01:01 Clumped Platelets Not Reportable 11/30/21 01:01 Plt Clumps, EDTA Not Reportable 11/30/21 01:01 Large Platelets Not Reportable 11/30/21 01:01 Giant Platelets Not Reportable 11/30/21 01:01 Platelet Satelliting Not Reportable 11/30/21 01:01 Plt Morphology Comment Not Reportable 11/30/21 01:01 RBC Morphology Not Reportable 11/30/21 01:01 Dimorphic RBCs Not Reportable 11/30/21 01:01 Polychromasia Not Reportable 11/30/21 01:01 Hypochromasia Not Reportable 11/30/21 01:01 Poikilocytosis Not Reportable 11/30/21 01:01 Anisocytosis 1+ 11/30/21 01:01 Microcytosis 1+ 11/30/21 01:01 Macrocytosis Not Reportable 11/30/21 01:01 Spherocytes Not Reportable 11/30/21 01:01 Pappenheimer Bodies Not Reportable 11/30/21 01:01 Sickle Cells Not Reportable 11/30/21 01:01 Target Cells Not Reportable 11/30/21 01:01 Tear Drop Cells Not Reportable 11/30/21 01:01 Ovalocytes Not Reportable 11/30/21 01:01 Helmet Cells Not Reportable 11/30/21 01:01 Corado-Hackberry Bodies Not Reportable 11/30/21 01:01 [place] Rings Not Reportable 11/30/21 01:01 [place] Cells Not Reportable 11/30/21 01:01 Bite Cells Not Reportable 11/30/21 01:01 Crenated Cell Not Reportable 11/30/21 01:01 Elliptocytes Not Reportable 11/30/21 01:01 Acanthocytes (Spur) Not Reportable 11/30/21 01:01 Rouleaux 1+ 11/30/21 01:01 Hemoglobin C Crystals Not Reportable 11/30/21 01:01 Schistocytes Not Reportable 11/30/21 01:01 Malaria parasites Not Reportable 11/30/21 01:01 Sunday Bodies Not Reportable 11/30/21 01:01 Hem Pathologist Commnt Sent to pathology 11/30/21 01:01 Sodium 142 mmol/L (137-145) 11/30/21 01:01 Potassium 3.6 mmol/L (3.6-5.0) 11/30/21 01:01 Chloride 107.7 mmol/L (98-107) H 11/30/21 01:01 Carbon Dioxide 20 mmol/L (22-30) L 11/30/21 01:01 Anion Gap 18 mmol/L 11/30/21 01:01 BUN 11 mg/dL (9-20) 11/30/21 01:01 Creatinine 0.7 mg/dL (0.8-1.3) L 11/30/21 01:01 Estimated GFR > 60 ml/min 11/30/21 01:01 BUN/Creatinine Ratio 16 % 11/30/21 01:01 Glucose 100 mg/dL (75-100) 11/30/21 01:01 Hemoglobin A1c 5.1 % (4-6) 11/30/21 01:01 Calcium 7.7 mg/dL (8.4-10.2) L 11/30/21 01:01 Total Bilirubin 0.60 mg/dL (0.1-1.2) 11/30/21 01:01 AST 37 units/L (5-40) 11/30/21 01:01 ALT 56 units/L (7-56) 11/30/21 01:01 Alkaline Phosphatase 121 units/L (35-129) 11/30/21 01:01 Total Protein 5.6 g/dL (6.3-8.2) L 11/30/21 01:01 Albumin 3.4 g/dL (3.9-5) L 11/30/21 01:01 Albumin/Globulin Ratio 1.5 % 11/30/21 01:01 Triglycerides 104 mg/dL (2-149) 11/30/21 01:01 Cholesterol 117 mg/dL (50-199) 11/30/21 01:01 LDL Cholesterol Direct 62 mg/dL (50-130) 11/30/21 01:01 HDL Cholesterol 37 mg/dL (40-59) L 11/30/21 01:01 Cholesterol/HDL Ratio 3.16 % 11/30/21 01:01 TSH 1.950 mlU/mL (0.270-4.200) 11/30/21 01:01 Perez/IV: Voiding Method Toilet Active Medications - Current Medications Current Medications: Generic Name Dose Route Start Last Admin Trade Name Freq PRN Reason Stop Dose Admin Acetaminophen 650 mg 12/01/21 09:30 12/03/21 06:16 Acetaminophen 325 Mg Tab PO 650 mg Q6H PRN Administration Pain, Mild (1-3) Albuterol 2.5 mg 11/30/21 16:00 Albuterol 2.5 Mg/3 Ml Nebu IH Q4HRT PRN Shortness Of Breath Amlodipine Besylate 10 mg 11/30/21 12:00 12/05/21 09:16 Amlodipine 10 Mg Tab PO 10 mg DAILY [facility] Administration Arformoterol Tartrate 15 mcg 12/02/21 13:00 12/05/21 19:29 Arformoterol 15 Mcg/2 Ml Nebu IH 15 mcg Q12HRT [facility] Administration Benztropine Mesylate 0.5 mg 12/05/21 10:00 12/05/21 10:42 Benztropine 0.5 Mg Tab PO 0.5 mg BID [facility] Administration Budesonide 0.5 mg 12/02/21 13:00 12/05/21 19:29 Budesonide 0.5 Mg/2 Ml Nebu IH 0.5 mg Q12HRT [facility] Administration Clonazepam 1 mg 12/01/21 14:00 12/05/21 13:56 Clonazepam 0.5 Mg Tab PO 1 mg TID [facility] Administration Fluoxetine HCl 80 mg 11/30/21 13:00 12/05/21 09:18 Fluoxetine 20 Mg Cap PO 80 mg QDAY [facility] Administration Hydroxyzine Pamoate 50 mg 12/01/21 11:00 12/05/21 09:17 Hydroxyzine Pamoate 50 Mg Cap PO 50 mg BID [facility] Administration Levothyroxine Sodium 75 mcg 12/01/21 10:00 12/05/21 06:36 Levothyroxine 75 Mcg Tab PO 75 mcg DAILY@0600 [facility] Administration Melatonin 10 mg 12/01/21 22:00 12/05/21 00:52 Melatonin 5 Mg Tab PO 10 mg QHS PRN Administration Sleep Miscellaneous Medication 30 mg 11/30/21 18:00 Dextroamphetamine/Amphetamine PO 0600,1800 [facility] Miscellaneous Medication 1 each 12/01/21 10:00 Fluticasone/Umeclidin/Vilanter [Trelegy Ellipta 100-62.5-25] NS DAILY [facility] Nicotine 21 mg 12/04/21 10:00 12/05/21 09:17 Nicotine 21 Mg/24 Hr Patch TD 21 mg QDAY [facility] Administration Pantoprazole Sodium 40 mg 11/30/21 12:30 12/05/21 09:17 Pantoprazole 40 Mg Tab PO 40 mg QDAY [facility] Administration Ropinirole HCl 1 mg 11/30/21 22:00 12/04/21 21:27 Ropinirole 1 Mg Tab PO 1 mg QHS [facility] Administration Temazepam 30 mg 11/30/21 22:00 12/04/21 21:27 Temazepam 15 Mg Cap PO 30 mg QHS [facility] Administration Trazodone HCl 50 mg 12/05/21 22:00 Trazodone 50 Mg Tab PO QHS PRN Insomnia Ziprasidone 60 mg 12/05/21 10:00 12/05/21 10:42 Ziprasidone 60 Mg Cap PO 60 mg DAILY [facility] Administration
[2021-12-05] MEDS: TEMAZEPAM 15 MG CAP PO SCH (21:26)
[2021-12-05] MEDS: rOPINIRole 1 MG TAB PO SCH (21:26)
[2021-12-05] MEDS ORDERED: traZODone 50 MG TAB PO PRN (22:00)
[2021-12-06] MEDS: MELATONIN 5 MG TAB PO PRN (01:11)
[2021-12-06] MEDS: LEVOTHYROXINE 75 MCG TAB PO SCH (06:15)
[2021-12-06] MEDS: BUDESONIDE 0.5 MG/2 ML NEBU IH SCH (08:10)
[2021-12-06] MEDS: ARFORMOTEROL 15 MCG/2 ML NEBU IH SCH (08:10)
--- NOTE | 2021-12-06 09:06 | Progress Note ---
Subjective Date of service: 12/06/21 Principal diagnosis: MDD Subjective Comment: 12/06: The patient was seen today. he states that he is confused " they discharged my from the hospital with no where to stay, I don't know where she is." The patient continues to endorse intermittent suicidal ideation and auditory/visual hallucinations. Started Depakote DRDarrel 125mg po BID 12/05:The patient was seen today. He continues to endorse depression rates as 9/10. He reports not taking Geodon because " it was making me shake." He reports difficult with maintaining sleep. He reports having intermittent suicidal ideation, denies hallucinations. Decrease Geodon to 60mg po Daily and start Benztropine 0.5mg po BID, start Trazodone 50mg po QHS PRN for insomnia. 12/04: The patient was seen today. He states that he is not doing well; worried about his . The patient is requesting for PRN Injection;he seems to be med seeking. He states "I'm suicidal, if they hurt my I'll be homicidal." The patient denies hallucinations. 12/03: The patient was seen today. He states he is doing well. He continues to endorse depression rating as 7/10. He states sleep is better. He states that his was missing and he found him yesterday in a " trauma unit in [place]." The patient reports having suicidal ideation with no plan " not here." he denies hallucinations. 12/02: The patient was seen today. He thanks me for treating him. He says he usually doesn't like vistaril but it has been helping him to sleep well. He still endorses SI but denies a plan. He says his is missing and he would like to speak with the SW. 12/01 The patient was seen today. He says she is not good. He says he didn't sleep well. The patient says he's very anxious and has a headache. He says he's used to having a high dose of xanax at 8mg daily. I inform the patient that I would increase his klonopin, but will not give 8mg daily. He is in agreement with the plan. He also says he still feels SI. He denies a plan. The patient denies hallucinations of any kind. REVIEW OF SYSTEMS Constitutional: Negative for weight loss ENT: Negative for stridor Respiratory: Negative for cough or hemoptysis All other systems reviewed and are negative MENTAL STATUS EXAMINATION General Appearance and Behavior: Age appropriate, good hygiene, wearing appropriate clothes, good eye contact, anxious, cooperative Cooperation: Participating/engaged, but Guarded Psychomotor Behavior: Psychomotor normal Mood: Depressed Affect and affective range: congruent with stated mood Thought Process: goal directed Thought Content: suicidal Speech: normal tone and pace Suicidal Ideation: Yes, intermittent Homicidal Ideation: Denies Hallucinations: Denies Delusions: None elicited Impulse Control: Limited Insight and Judgment: Poor insight and judgment Memory: Limited Attention: attentive Orientation: Alert, oriented Assessment and Plan Bipolar Disorder Generalized Anxiety Disorder Treatment Plan Patient admitted for inpatient psychiatric evaluation, medication adjustment and close monitoring The patient's behavior, mood, sleep and appetite will be closely monitored. Patient enrolled in individual and group therapeutic sessions and encouraged to attend. Patient provided with a safe and structured environment. Patient's physical health needs will be addressed by the Hospitalist. Hospitalist Consulted Labs including CBC, CMP, Lipid profile and Hemoglobin A1C levels ordered for baseline reference Social Assessment will be completed and the Photo Optics Technician will work with patient and family to ensure a suitable and safe disposition Medication adjustment will be made as clinically indicated Continue current meds Usual Wellness Anglican/Preservation: - Start Trazodone 50 mg po QHS & 50 mg po QHS PRN between 10 PM & 2 AM for insomnia - Start Melatonin 5 mg po QHS to promote circadian rhythm The patient agreed on the treatment plan, understood the risk, benefit, alternative treatment, potential consequence of no treatment, and gave informed consent. Estimated days: 1 Post hospital care: primary care provider, psychiatric provider Case staffed with Dr. Combs Medications and Allergies Medications and Allergies Allergies Allergy/AdvReac Type Severity Reaction Status Date / Time Penicillins Allergy Unknown Verified 07/05/15 18:37 Home Medications Medication Instructions Recorded Confirmed Last Taken Type FLUoxetine HCL [PROzac] 80 mg PO QDAY 07/05/15 11/30/21 07/04/15 History ALPRAZolam [Xanax TAB] 2 mg PO Q8H PRN 11/30/21 11/30/21 Unknown History Albuterol Sulfate [Proair 90 mcg IH Q6HR PRN 11/30/21 11/30/21 Unknown History Respiclick] Dextroamphetamine/Amphetami(Nf 30 mg PO 0600,1800 11/30/21 11/30/21 Unknown History [Amphetamine Salts (Nf)] Fluticasone/Umeclidin/Vilanter 1 each IH DAILY 11/30/21 11/30/21 Unknown History [Trelegy Ellipta 100-62.5-25] Levothyroxine [Synthroid] 75 mcg PO QAM 11/30/21 11/30/21 Unknown History Pantoprazole [Protonix] 40 mg PO QDAY 11/30/21 11/30/21 Unknown History Temazepam [Restoril] 30 mg PO QHS 11/30/21 11/30/21 Unknown History Ziprasidone HCl [Geodon] 80 mg PO DAILY 11/30/21 11/30/21 Unknown History amLODIPine [Norvasc] 10 mg PO DAILY 11/30/21 11/30/21 Unknown History rOPINIRole [Requip] 1 mg PO QHS 11/30/21 11/30/21 Unknown History Active Meds: Active Medications Acetaminophen (Acetaminophen 325 Mg Tab) 650 mg PO Q6H PRN PRN Reason: Pain, Mild (1-3) Last Admin: 12/03/21 06:16 Dose: 650 mg Albuterol (Albuterol 2.5 Mg/3 Ml Nebu) 2.5 mg IH Q4HRT PRN PRN Reason: Shortness Of Breath Amlodipine Besylate (Amlodipine 10 Mg Tab) 10 mg PO DAILY [facility] Last Admin: 12/05/21 09:16 Dose: 10 mg Arformoterol Tartrate (Arformoterol 15 Mcg/2 Ml Nebu) 15 mcg IH Q12HRT [facility] Last Admin: 12/06/21 08:10 Dose: Not Given Benztropine Mesylate (Benztropine 0.5 Mg Tab) 0.5 mg PO BID [facility] Last Admin: 12/05/21 21:26 Dose: 0.5 mg Budesonide (Budesonide 0.5 Mg/2 Ml Nebu) 0.5 mg IH Q12HRT [facility] Last Admin: 12/06/21 08:10 Dose: Not Given Clonazepam (Clonazepam 0.5 Mg Tab) 1 mg PO TID [facility] Last Admin: 12/05/21 20:16 Dose: 1 mg Fluoxetine HCl (Fluoxetine 20 Mg Cap) 80 mg PO QDAY [facility] Last Admin: 12/05/21 09:18 Dose: 80 mg Hydroxyzine Pamoate (Hydroxyzine Pamoate 50 Mg Cap) 50 mg PO BID [facility] Last Admin: 12/05/21 21:27 Dose: 50 mg Levothyroxine Sodium (Levothyroxine 75 Mcg Tab) 75 mcg PO DAILY@0600 [facility] Last Admin: 12/06/21 06:15 Dose: 75 mcg Melatonin (Melatonin 5 Mg Tab) 10 mg PO QHS PRN PRN Reason: Sleep Last Admin: 12/06/21 01:11 Dose: 10 mg Miscellaneous Medication (Dextroamphetamine/Amphetamine) 30 mg PO 0600,1800 [facility] Miscellaneous Medication (Fluticasone/Umeclidin/Vilanter [Trelegy Ellipta 100-62.5-25]) 1 each NS DAILY [facility] Nicotine (Nicotine 21 Mg/24 Hr Patch) 21 mg TD QDAY [facility] Last Admin: 12/05/21 09:17 Dose: 21 mg Pantoprazole Sodium (Pantoprazole 40 Mg Tab) 40 mg PO QDAY [facility] Last Admin: 12/05/21 09:17 Dose: 40 mg Ropinirole HCl (Ropinirole 1 Mg Tab) 1 mg PO QHS [facility] Last Admin: 12/05/21 21:26 Dose: 1 mg Temazepam (Temazepam 15 Mg Cap) 30 mg PO QHS [facility] Last Admin: 12/05/21 21:26 Dose: 30 mg Trazodone HCl (Trazodone 50 Mg Tab) 50 mg PO QHS PRN PRN Reason: Insomnia Ziprasidone (Ziprasidone 60 Mg Cap) 60 mg PO DAILY [facility] Last Admin: 12/05/21 10:42 Dose: 60 mg Results - Results Labs/Vitals: Laboratory Last Values WBC 4.5 K/mm3 (4.5-11.0) 11/30/21 01:01 RBC 4.27 M/mm3 (3.65-5.03) 11/30/21 01:01 Hgb 11.9 gm/dl (11.8-15.2) 11/30/21 01:01 Hct 36.9 % (35.5-45.6) 11/30/21 01:01 MCV 86 fl (84-94) 11/30/21 01:01 MCH 28 pg (28-32) 11/30/21 01:01 MCHC 32 % (32-34) 11/30/21 01:01 RDW 16.9 % (13.2-15.2) H 11/30/21 01:01 Plt Count 153 K/mm3 (140-440) 11/30/21 01:01 Add Manual Diff Complete 11/30/21 01:01 Total Counted 100 11/30/21 01:01 Seg Neuts % (Manual) 34.0 % (40.0-70.0) L 11/30/21 01:01 Band Neutrophils % 0 % 11/30/21 01:01 Lymphocytes % (Manual) 48.0 % (13.4-35.0) H 11/30/21 01:01 Reactive Lymphs % (Man) 0 % 11/30/21 01:01 Monocytes % (Manual) 7.0 % (0.0-7.3) 11/30/21 01:01 Eosinophils % (Manual) 11.0 % (0.0-4.3) H 11/30/21 01:01 Basophils % (Manual) 0 % (0.0-1.8) 11/30/21 01:01 Metamyelocytes % 0 % 11/30/21 01:01 Myelocytes % 0 % 11/30/21 01:01 Promyelocytes % 0 % 11/30/21 01:01 Blast Cells % 0 % 11/30/21 01:01 Nucleated RBC % Not Reportable 11/30/21 01:01 Seg Neutrophils # Man 1.5 K/mm3 (1.8-7.7) L 11/30/21 01:01 Band Neutrophils # 0.0 K/mm3 11/30/21 01:01 Lymphocytes # (Manual) 2.2 K/mm3 (1.2-5.4) 11/30/21 01:01 Abs React Lymphs (Man) 0.0 K/mm3 11/30/21 01:01 Monocytes # (Manual) 0.3 K/mm3 (0.0-0.8) 11/30/21 01:01 Eosinophils # (Manual) 0.5 K/mm3 (0.0-0.4) H 11/30/21 01:01 Basophils # (Manual) 0.0 K/mm3 (0.0-0.1) 11/30/21 01:01 Metamyelocytes # 0.0 K/mm3 11/30/21 01:01 Myelocytes # 0.0 K/mm3 11/30/21 01:01 Promyelocytes # 0.0 K/mm3 11/30/21 01:01 Blast Cells # 0.0 K/mm3 11/30/21 01:01 Pathologist Review 11/30/21 01:01 WBC Morphology Not Reportable 11/30/21 01:01 Hypersegmented Neuts Not Reportable 11/30/21 01:01 Hyposegmented Neuts Not Reportable 11/30/21 01:01 Hypogranular Neuts Not Reportable 11/30/21 01:01 Smudge Cells Not Reportable 11/30/21 01:01 Toxic Granulation Not Reportable 11/30/21 01:01 Toxic Vacuolation Not Reportable 11/30/21 01:01 Dohle Bodies Not Reportable 11/30/21 01:01 Pelger-Huet Anomaly Not Reportable 11/30/21 01:01 Sohail Rods Not Reportable 11/30/21 01:01 Platelet Estimate Consistent w auto 11/30/21 01:01 Clumped Platelets Not Reportable 11/30/21 01:01 Plt Clumps, EDTA Not Reportable 11/30/21 01:01 Large Platelets Not Reportable 11/30/21 01:01 Giant Platelets Not Reportable 11/30/21 01:01 Platelet Satelliting Not Reportable 11/30/21 01:01 Plt Morphology Comment Not Reportable 11/30/21 01:01 RBC Morphology Not Reportable 11/30/21 01:01 Dimorphic RBCs Not Reportable 11/30/21 01:01 Polychromasia Not Reportable 11/30/21 01:01 Hypochromasia Not Reportable 11/30/21 01:01 Poikilocytosis Not Reportable 11/30/21 01:01 Anisocytosis 1+ 11/30/21 01:01 Microcytosis 1+ 11/30/21 01:01 Macrocytosis Not Reportable 11/30/21 01:01 Spherocytes Not Reportable 11/30/21 01:01 Pappenheimer Bodies Not Reportable 11/30/21 01:01 Sickle Cells Not Reportable 11/30/21 01:01 Target Cells Not Reportable 11/30/21 01:01 Tear Drop Cells Not Reportable 11/30/21 01:01 Ovalocytes Not Reportable 11/30/21 01:01 Helmet Cells Not Reportable 11/30/21 01:01 Corado-Am[place] Bodies Not Reportable 11/30/21 01:01 [place] Rings Not Reportable 11/30/21 01:01 [place] Cells Not Reportable 11/30/21 01:01 Bite Cells Not Reportable 11/30/21 01:01 Crenated Cell Not Reportable 11/30/21 01:01 Elliptocytes Not Reportable 11/30/21 01:01 Acanthocytes (Spur) Not Reportable 11/30/21 01:01 Rouleaux 1+ 11/30/21 01:01 Hemoglobin C Crystals Not Reportable 11/30/21 01:01 Schistocytes Not Reportable 11/30/21 01:01 Malaria parasites Not Reportable 11/30/21 01:01 Sunday Bodies Not Reportable 11/30/21 01:01 Hem Pathologist Commnt Sent to pathology 11/30/21 01:01 Sodium 142 mmol/L (137-145) 11/30/21 01:01 Potassium 3.6 mmol/L (3.6-5.0) 11/30/21 01:01 Chloride 107.7 mmol/L (98-107) H 11/30/21 01:01 Carbon Dioxide 20 mmol/L (22-30) L 11/30/21 01:01 Anion Gap 18 mmol/L 11/30/21 01:01 BUN 11 mg/dL (9-20) 11/30/21 01:01 Creatinine 0.7 mg/dL (0.8-1.3) L 11/30/21 01:01 Estimated GFR > 60 ml/min 11/30/21 01:01 BUN/Creatinine Ratio 16 % 11/30/21 01:01 Glucose 100 mg/dL (75-100) 11/30/21 01:01 Hemoglobin A1c 5.1 % (4-6) 11/30/21 01:01 Calcium 7.7 mg/dL (8.4-10.2) L 11/30/21 01:01 Total Bilirubin 0.60 mg/dL (0.1-1.2) 11/30/21 01:01 AST 37 units/L (5-40) 11/30/21 01:01 ALT 56 units/L (7-56) 11/30/21 01:01 Alkaline Phosphatase 121 units/L (35-129) 11/30/21 01:01 Total Protein 5.6 g/dL (6.3-8.2) L 11/30/21 01:01 Albumin 3.4 g/dL (3.9-5) L 11/30/21 01:01 Albumin/Globulin Ratio 1.5 % 11/30/21 01:01 Triglycerides 104 mg/dL (2-149) 11/30/21 01:01 Cholesterol 117 mg/dL (50-199) 11/30/21 01:01 LDL Cholesterol Direct 62 mg/dL (50-130) 11/30/21 01:01 HDL Cholesterol 37 mg/dL (40-59) L 11/30/21 01:01 Cholesterol/HDL Ratio 3.16 % 11/30/21 01:01 TSH 1.950 mlU/mL (0.270-4.200) 11/30/21 01:01 Last Vital Signs Temp 97.4 F L 12/05/21 19:47 Pulse 98 H 12/05/21 19:47 Resp 20 12/05/21 19:47 BP 126/97 12/05/21 19:47 Pulse Ox 94 12/05/21 19:47
[2021-12-06] MEDS: PANTOPRAZOLE 40 MG TAB PO SCH (09:16)
[2021-12-06] MEDS: BENZTROPINE 0.5 MG TAB PO SCH ×2 (09:16→21:24)
[2021-12-06] MEDS: FLUoxetine 20 MG CAP PO SCH (09:16)
[2021-12-06] MEDS: clonazePAM 0.5 MG TAB PO SCH ×3 (09:16→21:24)
[2021-12-06] MEDS: ZIPRASIDONE 60 MG CAP PO SCH (09:16)
[2021-12-06] MEDS: NICOTINE 21 MG/24 HR PATCH TD SCH (09:17)
[2021-12-06] MEDS: DIVALPROEX DR 125 MG TAB PO SCH ×2 (10:32→21:24)
[2021-12-06] MEDS: amLODIPine 10 MG TAB PO SCH (10:32)
--- NOTE | 2021-12-06 20:45 | Progress Note ---
Assessment and Plan Assessment and Plan - Patient Problems (1) Vascular dementia with behavioral disturbance Current Visit: Yes Status: Acute Plan to address problem: For prompt, verbal redirection, benzodiazepine therapy as clinically indicated. (2) Cerebral atherosclerosis Current Visit: Yes Status: Acute Plan to address problem: Risk factor reduction therapy, antiplatelet therapy as clinically indicated. (3) Hypertension Current Visit: Yes Status: Acute Qualifiers: Hypertension type: primary hypertension Qualified Code(s): I10 - Essential (primary) hypertension Plan to address problem: Monitor blood pressure every shift, continue medical management (4) GERD (gastroesophageal reflux disease) Current Visit: Yes Status: Acute Qualifiers: Esophagitis presence: without esophagitis Qualified Code(s): K21.9 - Gastro-esophageal reflux disease without esophagitis Plan to address problem: PPI therapy, supportive care. [place] diet (5) Hypothyroidism Current Visit: Yes Status: Acute Plan to address problem: Continue Synthroid therapy, supportive care. (6) MDD (major depressive disorder) Current Visit: Yes Status: Acute Qualifiers: Major depression episode severity: unspecified Plan to address problem: Continue medical management, supportive care, cognitive behavioral therapy. (7) OC (generalized anxiety disorder) Current Visit: Yes Status: Acute Plan to address problem: Benzodiazepine therapy as indicated. (8) Advance care planning Current Visit: Yes Status: Acute Plan to address problem: Disease education conducted, care plan discussed, diagnoses discussed, prognosis discussed, patient is full code. +30 minutes. Subjective Date of service: 12/06/21 Principal diagnosis: MDD Interval history: History Interval history: 61 YO Male with Vascular Dementia with Behavioral Disturbance, Cerebral Atherosclerosis, COPD, Mild Intermittent Asthma, GERD, Hypothyroidism, HTN, OC, MDD [facility] for psychiatric [facility]. Consult placed by Dr. Orta for medical management. Patient seen and evaluated in the recreation room. No reported nursing events. Patient denies pain. Patient remains at baseline level of cognition and function. Objective - Constitutional Vitals: Vital Signs - 12hr 12/06/21 12/06/21 09:45 10:32 Temperature 97.4 F L Pulse Rate 79 79 Respiratory 20 Rate Blood Pressure 118/78 118/78 O2 Sat by Pulse 96 Oximetry General appearance: Present: no acute distress, well-nourished - EENT Eyes: PERRL, EOM intact ENT: hearing intact, clear oral mucosa Ears: bilateral: normal - Neck Neck: supple, normal ROM - Respiratory Respiratory effort: normal Respiratory: bilateral: CTA - Breasts Breasts: normal - Cardiovascular Heart rate: 78 Rhythm: regular Heart Sounds: Present: S1 & S2. Absent: gallop, rub Extremities: pulses intact, No edema, normal color, Full ROM - Gastrointestinal General gastrointestinal: Present: soft, non-tender, non-distended, normal bowel sounds - Genitourinary Male genitourinary: normal - Integumentary Integumentary: clear, warm, dry - Musculoskeletal Musculoskeletal: 1, strength equal bilaterally - Neurologic Neurologic: moves all extremities - Psychiatric Psychiatric: memory intact, appropriate mood/affect, intact judgment & insight - Labs CBC & Chem 7: 11/30/21 01:01 11/30/21 01:01
[2021-12-06] MEDS: rOPINIRole 1 MG TAB PO SCH (21:24)
[2021-12-06] MEDS: TEMAZEPAM 15 MG CAP PO SCH (21:24)
[2021-12-07] MEDS: LEVOTHYROXINE 75 MCG TAB PO SCH (06:20)
--- NOTE | 2021-12-07 08:37 | Discharge Summary ---
Providers - Providers Date of Admission: 11/29/21 22:50 Date of discharge: 12/07/21 Attending physician: FLY AGUIRRE MD 11/29/21 22:50 Consult to Physician [CONS] Routine Comment: Consulting Provider: JOSÉ SMITH Physician Instructions: Reason For Exam: H&P Primary care physician: [employer] Hospitalization Reason for admission: suicidal ideation Admitting Diagnosis: F31.2 - BIPOLAR DISORD, CRNT EPISODE MANIC SEVERE W PSYCH FEATURES Condition: Stable Hospital course: The patient was provided inpatient psychiatric treatment with safe and supportive environment, group/individual therapy, psychiatric medication, medication adjustment, adverse effect monitor, medical evaluation, medical treatment, social service assessment, social support meeting, placement assessment and psycho-education. The patients mood, cognition, behavior, motivation, compliance to treatment and appreciation on family/social support are improved and stabilized. At the time of discharge, the patient had no suicidal ideas, no homicidal ideas, no aggressive thoughts, no endangering behavior and no debilitating adverse effects. The patient agreed on the treatment plan, understood the risk, benefit, alternative treatment, potential consequence of no treatment, and gave informed consent. Progress Note: 12/06: The patient was seen today. he states that he is confused " they discharged my from the hospital with no where to stay, I don't know where she is." The patient continues to endorse intermittent suicidal ideation and auditory/visual hallucinations. Started Depakote DR. 125mg po BID 12/05:The patient was seen today. He continues to endorse depression rates as 9/10. He reports not taking Geodon because " it was making me shake." He reports difficult with maintaining sleep. He reports having intermittent suicidal ideation, denies hallucinations. Decrease Geodon to 60mg po Daily and start Benztropine 0.5mg po BID, start Trazodone 50mg po QHS PRN for insomnia. 12/04: The patient was seen today. He states that he is not doing well; worried about his . The patient is requesting for PRN Injection;he seems to be med seeking. He states "I'm suicidal, if they hurt my I'll be homicidal." The patient denies hallucinations. 12/03: The patient was seen today. He states he is doing well. He continues to endorse depression rating as 7/10. He states sleep is better. He states that his was missing and he found him yesterday in a " trauma unit in [place]." The patient reports having suicidal ideation with no plan " not here." he denies hallucinations. 12/02: The patient was seen today. He thanks me for treating him. He says he usually doesn't like vistaril but it has been helping him to sleep well. He still endorses SI but denies a plan. He says his is missing and he would like to speak with the SW. 12/01 The patient was seen today. He says she is not good. He says he didn't sleep well. The patient says he's very anxious and has a headache. He says he's used to having a high dose of xanax at 8mg daily. I inform the patient that I would increase his klonopin, but will not give 8mg daily. He is in agreement with the plan. He also says he still feels SI. He denies a plan. The patient denies hallucinations of any kind. Disposition: 30 STILL A PATIENT Allergies/Adverse Reactions: Allergies Penicillins Allergy (Verified 07/05/15 18:37) Unknown Vital Signs: Last Vital Signs Temp 98.3 F 12/06/21 22:00 Pulse 86 12/06/21 22:00 Resp 18 12/06/21 22:00 BP 117/63 12/06/21 22:00 Pulse Ox 94 12/06/21 22:00 Last Lab: Laboratory Last Values WBC 4.5 K/mm3 (4.5-11.0) 11/30/21 01:01 RBC 4.27 M/mm3 (3.65-5.03) 11/30/21 01:01 Hgb 11.9 gm/dl (11.8-15.2) 11/30/21 01:01 Hct 36.9 % (35.5-45.6) 11/30/21 01:01 MCV 86 fl (84-94) 11/30/21 01:01 MCH 28 pg (28-32) 11/30/21 01:01 MCHC 32 % (32-34) 11/30/21 01:01 RDW 16.9 % (13.2-15.2) H 11/30/21 01:01 Plt Count 153 K/mm3 (140-440) 11/30/21 01:01 Add Manual Diff Complete 11/30/21 01:01 Total Counted 100 11/30/21 01:01 Seg Neuts % (Manual) 34.0 % (40.0-70.0) L 11/30/21 01:01 Band Neutrophils % 0 % 11/30/21 01:01 Lymphocytes % (Manual) 48.0 % (13.4-35.0) H 11/30/21 01:01 Reactive Lymphs % (Man) 0 % 11/30/21 01:01 Monocytes % (Manual) 7.0 % (0.0-7.3) 11/30/21 01:01 Eosinophils % (Manual) 11.0 % (0.0-4.3) H 11/30/21 01:01 Basophils % (Manual) 0 % (0.0-1.8) 11/30/21 01:01 Metamyelocytes % 0 % 11/30/21 01:01 Myelocytes % 0 % 11/30/21 01:01 Promyelocytes % 0 % 11/30/21 01:01 Blast Cells % 0 % 11/30/21 01:01 Nucleated RBC % Not Reportable 11/30/21 01:01 Seg Neutrophils # Man 1.5 K/mm3 (1.8-7.7) L 11/30/21 01:01 Band Neutrophils # 0.0 K/mm3 11/30/21 01:01 Lymphocytes # (Manual) 2.2 K/mm3 (1.2-5.4) 11/30/21 01:01 Abs React Lymphs (Man) 0.0 K/mm3 11/30/21 01:01 Monocytes # (Manual) 0.3 K/mm3 (0.0-0.8) 11/30/21 01:01 Eosinophils # (Manual) 0.5 K/mm3 (0.0-0.4) H 11/30/21 01:01 Basophils # (Manual) 0.0 K/mm3 (0.0-0.1) 11/30/21 01:01 Metamyelocytes # 0.0 K/mm3 11/30/21 01:01 Myelocytes # 0.0 K/mm3 11/30/21 01:01 Promyelocytes # 0.0 K/mm3 11/30/21 01:01 Blast Cells # 0.0 K/mm3 11/30/21 01:01 Pathologist Review 11/30/21 01:01 WBC Morphology Not Reportable 11/30/21 01:01 Hypersegmented Neuts Not Reportable 11/30/21 01:01 Hyposegmented Neuts Not Reportable 11/30/21 01:01 Hypogranular Neuts Not Reportable 11/30/21 01:01 Smudge Cells Not Reportable 11/30/21 01:01 Toxic Granulation Not Reportable 11/30/21 01:01 Toxic Vacuolation Not Reportable 11/30/21 01:01 Dohle Bodies Not Reportable 11/30/21 01:01 Pelger-Huet Anomaly Not Reportable 11/30/21 01:01 Sohail Rods Not Reportable 11/30/21 01:01 Platelet Estimate Consistent w auto 11/30/21 01:01 Clumped Platelets Not Reportable 11/30/21 01:01 Plt Clumps, EDTA Not Reportable 11/30/21 01:01 Large Platelets Not Reportable 11/30/21 01:01 Giant Platelets Not Reportable 11/30/21 01:01 Platelet Satelliting Not Reportable 11/30/21 01:01 Plt Morphology Comment Not Reportable 11/30/21 01:01 RBC Morphology Not Reportable 11/30/21 01:01 Dimorphic RBCs Not Reportable 11/30/21 01:01 Polychromasia Not Reportable 11/30/21 01:01 Hypochromasia Not Reportable 11/30/21 01:01 Poikilocytosis Not Reportable 11/30/21 01:01 Anisocytosis 1+ 11/30/21 01:01 Microcytosis 1+ 11/30/21 01:01 Macrocytosis Not Reportable 11/30/21 01:01 Spherocytes Not Reportable 11/30/21 01:01 Pappenheimer Bodies Not Reportable 11/30/21 01:01 Sickle Cells Not Reportable 11/30/21 01:01 Target Cells Not Reportable 11/30/21 01:01 Tear Drop Cells Not Reportable 11/30/21 01:01 Ovalocytes Not Reportable 11/30/21 01:01 Helmet Cells Not Reportable 11/30/21 01:01 [place] Bodies Not Reportable 11/30/21 01:01 [place] Rings Not Reportable 11/30/21 01:01 [place] Cells Not Reportable 11/30/21 01:01 Bite Cells Not Reportable 11/30/21 01:01 Crenated Cell Not Reportable 11/30/21 01:01 Elliptocytes Not Reportable 11/30/21 01:01 Acanthocytes (Spur) Not Reportable 11/30/21 01:01 Rouleaux 1+ 11/30/21 01:01 Hemoglobin C Crystals Not Reportable 11/30/21 01:01 Schistocytes Not Reportable 11/30/21 01:01 Malaria parasites Not Reportable 11/30/21 01:01 Sunday Bodies Not Reportable 11/30/21 01:01 Hem Pathologist Commnt Sent to pathology 11/30/21 01:01 Sodium 142 mmol/L (137-145) 11/30/21 01:01 Potassium 3.6 mmol/L (3.6-5.0) 11/30/21 01:01 Chloride 107.7 mmol/L (98-107) H 11/30/21 01:01 Carbon Dioxide 20 mmol/L (22-30) L 11/30/21 01:01 Anion Gap 18 mmol/L 11/30/21 01:01 BUN 11 mg/dL (9-20) 11/30/21 01:01 Creatinine 0.7 mg/dL (0.8-1.3) L 11/30/21 01:01 Estimated GFR > 60 ml/min 11/30/21 01:01 BUN/Creatinine Ratio 16 % 11/30/21 01:01 Glucose 100 mg/dL (75-100) 11/30/21 01:01 Hemoglobin A1c 5.1 % (4-6) 11/30/21 01:01 Calcium 7.7 mg/dL (8.4-10.2) L 11/30/21 01:01 Total Bilirubin 0.60 mg/dL (0.1-1.2) 11/30/21 01:01 AST 37 units/L (5-40) 11/30/21 01:01 ALT 56 units/L (7-56) 11/30/21 01:01 Alkaline Phosphatase 121 units/L (35-129) 11/30/21 01:01 Total Protein 5.6 g/dL (6.3-8.2) L 11/30/21 01:01 Albumin 3.4 g/dL (3.9-5) L 11/30/21 01:01 Albumin/Globulin Ratio 1.5 % 11/30/21 01:01 Triglycerides 104 mg/dL (2-149) 11/30/21 01:01 Cholesterol 117 mg/dL (50-199) 11/30/21 01:01 LDL Cholesterol Direct 62 mg/dL (50-130) 11/30/21 01:01 HDL Cholesterol 37 mg/dL (40-59) L 11/30/21 01:01 Cholesterol/HDL Ratio 3.16 % 11/30/21 01:01 TSH 1.950 mlU/mL (0.270-4.200) 11/30/21 01:01 Core Measure Documentation - Palliative Care Palliative Care/ Comfort Measures: Not Applicable - Core Measures Any of the following diagnoses?: none - VTE Discharge Requirements Deep Vein Thrombosis/Pulmonary Embolism Present on Admission: No Exam - Constitutional Vitals: Temp Pulse Resp BP Pulse Ox 98.3 F 86 18 117/63 94 12/06/21 22:00 12/06/21 22:00 12/06/21 22:00 12/06/21 22:00 12/06/21 22:00 Plan Activity: advance as tolerated Weight Bearing Status: Weight Bear as Tolerated Care Plan Goals: Maintain good and stable mental health. Plan of Treatment: The patient should be compliant with medications, not to use drugs and not to drink alcohol.The patient understands that if suicidal ideas, homicidal ideas, or any endangering thoughts/behavior arise, they should immediately seek for emergent assistance including but not limited to crisis hot line and emergency room. Follow up with outpatient Psychiatrist and PCP within 7 - 14 days of discharge. Follow up with: PRIMARY CARE, [Primary Care Provider] - 7 Days Prescriptions: traZODone [Desyrel] 50 mg PO QHS PRN 30 Days #30 tablet PRN Reason: Insomnia Temazepam [Restoril] 30 mg PO QHS 15 Days #15 cap Benztropine [Cogentin] 0.5 mg PO BID 30 Days #[address] [Depakote Dr] 125 mg PO BID 30 Days #60 tablet Ziprasidone [Geodon] 60 mg PO DAILY 30 Days #30 capsule clonazePAM [KlonoPIN] 1 mg PO TID 30 Days #30 tablet FLUoxetine HCL [PROzac] 80 mg PO QDAY 30 Days #60 cap hydrOXYzine PAMOATE [Vistaril] 50 mg PO BID 60 Days #60 capsule
[2021-12-07] MEDS: BENZTROPINE 0.5 MG TAB PO SCH ×2 (11:00→21:14)
[2021-12-07] MEDS: FLUoxetine 20 MG CAP PO SCH (11:00)
[2021-12-07] MEDS: clonazePAM 0.5 MG TAB PO SCH ×3 (11:00→20:34)
[2021-12-07] MEDS: NICOTINE 21 MG/24 HR PATCH TD SCH (11:01)
[2021-12-07] MEDS: PANTOPRAZOLE 40 MG TAB PO SCH (11:01)
[2021-12-07] MEDS: DIVALPROEX DR 125 MG TAB PO SCH ×2 (11:02→21:14)
[2021-12-07] MEDS: amLODIPine 10 MG TAB PO SCH (11:03)
[2021-12-07] MEDS: ZIPRASIDONE 60 MG CAP PO SCH (11:12)
--- NOTE | 2021-12-07 11:44 | Progress Note ---
Subjective Date of service: 12/07/21 Principal diagnosis: MDD Subjective Comment: 12/07: The patient was seen today. He continues to have intermittent suicidal ideation, reports having suicidal ideation earlier in the day but states he is fine now. Will plan to discharge tomorrow if the patient continues to do well. REVIEW OF SYSTEMS Constitutional: Negative for weight loss ENT: Negative for stridor Respiratory: Negative for cough or hemoptysis All other systems reviewed and are negative MENTAL STATUS EXAMINATION General Appearance and Behavior: Age appropriate, good hygiene, wearing appropriate clothes, good eye contact, anxious, cooperative Cooperation: Participating/engaged, but Guarded Psychomotor Behavior: Psychomotor normal Mood: Depressed Affect and affective range: congruent with stated mood Thought Process: goal directed Thought Content: suicidal Speech: normal tone and pace Suicidal Ideation: Denies Homicidal Ideation: Denies Hallucinations: Denies Delusions: None elicited Impulse Control: Limited Insight and Judgment: Poor insight and judgment Memory: Limited Attention: attentive Orientation: Alert, oriented Assessment and Plan Bipolar Disorder Generalized Anxiety Disorder Treatment Plan Patient admitted for inpatient psychiatric evaluation, medication adjustment and close monitoring The patient's behavior, mood, sleep and appetite will be closely monitored. Patient enrolled in individual and group therapeutic sessions and encouraged to attend. Patient provided with a safe and structured environment. Patient's physical health needs will be addressed by the Hospitalist. Hospitalist Consulted Labs including CBC, CMP, Lipid profile and Hemoglobin A1C levels ordered for baseline reference Social Assessment will be completed and the Lathmaker will work with patient and family to ensure a suitable and safe disposition Medication adjustment will be made as clinically indicated Continue current meds Usual Wellness Tenriism/Preservation: - Start Trazodone 50 mg po QHS & 50 mg po QHS PRN between 10 PM & 2 AM for insomnia - Start Melatonin 5 mg po QHS to promote circadian rhythm The patient agreed on the treatment plan, understood the risk, benefit, alternative treatment, potential consequence of no treatment, and gave informed consent. Estimated days: 1 Post hospital care: primary care provider, psychiatric provider Case staffed with Dr. Combs Medications and Allergies Medications and Allergies Allergies Allergy/AdvReac Type Severity Reaction Status Date / Time Penicillins Allergy Unknown Verified 07/05/15 18:37 Home Medications Medication Instructions Recorded Confirmed Last Taken Type ALPRAZolam [Xanax TAB] 2 mg PO Q8H PRN 11/30/21 11/30/21 Unknown History Albuterol Sulfate [Proair 90 mcg IH Q6HR PRN 11/30/21 11/30/21 Unknown History Respiclick] Dextroamphetamine/Amphetami(Nf 30 mg PO 0600,1800 11/30/21 11/30/21 Unknown History [Amphetamine Salts (Nf)] Levothyroxine [Synthroid] 75 mcg PO QAM 11/30/21 11/30/21 Unknown History Pantoprazole [Protonix TAB] 40 mg PO QDAY 11/30/21 11/30/21 Unknown History Ziprasidone HCl [Geodon] 80 mg PO DAILY 11/30/21 11/30/21 Unknown History amLODIPine 10 mg PO DAILY 11/30/21 11/30/21 Unknown History rOPINIRole [Requip] 1 mg PO QHS 11/30/21 11/30/21 Unknown History ALBUTEROL NEB's [Proventil 0.083% 2.5 mg IH Q4HRT PRN nebu 12/07/21 Unknown Rx NEBS] Acetaminophen [Acetaminophen TAB] 650 mg PO Q6H PRN tablet 12/07/21 Unknown Rx Arformoterol Nebu [Brovana Nebu] 15 mcg IH Q12HRT ml 12/07/21 Unknown Rx Benztropine [Cogentin] 0.5 mg PO BID 30 Days #60 tablet 12/07/21 Unknown Rx Budesonide [Pulmicort Respules] 0.5 mg IH Q12HRT nebu 12/07/[address] [Farida Dr] 125 mg PO BID 30 Days #60 tablet 12/07/21 Unknown Rx FLUoxetine HCL [PROzac] 80 mg PO QDAY 30 Days #60 cap 12/07/21 Unknown Rx Fluticasone/Umeclidin/Vilanter 1 each NS DAILY 12/07/21 Unknown Rx [Trelegy Ellipta 100-62.5-25] Melatonin [Melatonin 5MG TAB] 10 mg PO QHS PRN tablet 12/07/21 Unknown Rx Temazepam [Restoril] 30 mg PO QHS 15 Days #15 cap 12/07/21 Unknown Rx Ziprasidone [Geodon] 60 mg PO DAILY 30 Days #30 capsule 12/07/21 Unknown Rx clonazePAM [KlonoPIN] 1 mg PO TID 30 Days #30 tablet 12/07/21 Unknown Rx hydrOXYzine PAMOATE [Vistaril] 50 mg PO BID 60 Days #60 capsule 12/07/21 Unknown Rx traZODone [Desyrel] 50 mg PO QHS PRN 30 Days #30 tablet 12/07/21 Unknown Rx Active Meds: Active Medications Acetaminophen (Acetaminophen 325 Mg Tab) 650 mg PO Q6H PRN PRN Reason: Pain, Mild (1-3) Last Admin: 12/03/21 06:16 Dose: 650 mg Albuterol (Albuterol 2.5 Mg/3 Ml Nebu) 2.5 mg IH Q4HRT PRN PRN Reason: Shortness Of Breath Amlodipine Besylate (Amlodipine 10 Mg Tab) 10 mg PO DAILY [facility] Last Admin: 12/07/21 11:03 Dose: Not Given Arformoterol Tartrate (Arformoterol 15 Mcg/2 Ml Nebu) 15 mcg IH Q12HRT [facility] Last Admin: 12/06/21 08:10 Dose: Not Given Benztropine Mesylate (Benztropine 0.5 Mg Tab) 0.5 mg PO BID [facility] Last Admin: 12/07/21 11:00 Dose: 0.5 mg Budesonide (Budesonide 0.5 Mg/2 Ml Nebu) 0.5 mg IH Q12HRT [facility] Last Admin: 12/06/21 08:10 Dose: Not Given Clonazepam (Clonazepam 0.5 Mg Tab) 1 mg PO TID [facility] Last Admin: 12/07/21 11:00 Dose: 1 mg Divalproex Sodium (Divalproex Dr 125 Mg Tab) 125 mg PO BID [facility] Last Admin: 12/07/21 11:02 Dose: 125 mg Fluoxetine HCl (Fluoxetine 20 Mg Cap) 80 mg PO QDAY [facility] Last Admin: 12/07/21 11:00 Dose: 80 mg Hydroxyzine Pamoate (Hydroxyzine Pamoate 50 Mg Cap) 50 mg PO BID [facility] Last Admin: 12/07/21 11:00 Dose: 50 mg Levothyroxine Sodium (Levothyroxine 75 Mcg Tab) 75 mcg PO DAILY@0600 [facility] Last Admin: 12/07/21 06:20 Dose: 75 mcg Melatonin (Melatonin 5 Mg Tab) 10 mg PO QHS PRN PRN Reason: Sleep Last Admin: 12/06/21 01:11 Dose: 10 mg Miscellaneous Medication (Dextroamphetamine/Amphetamine) 30 mg PO 0600,1800 [facility] Miscellaneous Medication (Fluticasone/Umeclidin/Vilanter [Trelegy Ellipta 100-62.5-25]) 1 each NS DAILY [facility] Nicotine (Nicotine 21 Mg/24 Hr Patch) 21 mg TD QDAY [facility] Last Admin: 12/07/21 11:01 Dose: 21 mg Pantoprazole Sodium (Pantoprazole 40 Mg Tab) 40 mg PO QDAY [facility] Last Admin: 12/07/21 11:01 Dose: 40 mg Ropinirole HCl (Ropinirole 1 Mg Tab) 1 mg PO QHS [facility] Last Admin: 12/06/21 21:24 Dose: 1 mg Temazepam (Temazepam 15 Mg Cap) 30 mg PO QHS [facility] Last Admin: 12/06/21 21:24 Dose: 30 mg Trazodone HCl (Trazodone 50 Mg Tab) 50 mg PO QHS PRN PRN Reason: Insomnia Last Admin: 12/06/21 21:24 Dose: 50 mg Ziprasidone (Ziprasidone 60 Mg Cap) 60 mg PO DAILY [facility] Last Admin: 12/07/21 11:12 Dose: Not Given Results - Results Labs/Vitals: Laboratory Last Values WBC 4.5 K/mm3 (4.5-11.0) 11/30/21 01:01 RBC 4.27 M/mm3 (3.65-5.03) 11/30/21 01:01 Hgb 11.9 gm/dl (11.8-15.2) 11/30/21 01:01 Hct 36.9 % (35.5-45.6) 11/30/21 01:01 MCV 86 fl (84-94) 11/30/21 01:01 MCH 28 pg (28-32) 11/30/21 01:01 MCHC 32 % (32-34) 11/30/21 01:01 RDW 16.9 % (13.2-15.2) H 11/30/21 01:01 Plt Count 153 K/mm3 (140-440) 11/30/21 01:01 Add Manual Diff Complete 11/30/21 01:01 Total Counted 100 11/30/21 01:01 Seg Neuts % (Manual) 34.0 % (40.0-70.0) L 11/30/21 01:01 Band Neutrophils % 0 % 11/30/21 01:01 Lymphocytes % (Manual) 48.0 % (13.4-35.0) H 11/30/21 01:01 Reactive Lymphs % (Man) 0 % 11/30/21 01:01 Monocytes % (Manual) 7.0 % (0.0-7.3) 11/30/21 01:01 Eosinophils % (Manual) 11.0 % (0.0-4.3) H 11/30/21 01:01 Basophils % (Manual) 0 % (0.0-1.8) 11/30/21 01:01 Metamyelocytes % 0 % 11/30/21 01:01 Myelocytes % 0 % 11/30/21 01:01 Promyelocytes % 0 % 11/30/21 01:01 Blast Cells % 0 % 11/30/21 01:01 Nucleated RBC % Not Reportable 11/30/21 01:01 Seg Neutrophils # Man 1.5 K/mm3 (1.8-7.7) L 11/30/21 01:01 Band Neutrophils # 0.0 K/mm3 11/30/21 01:01 Lymphocytes # (Manual) 2.2 K/mm3 (1.2-5.4) 11/30/21 01:01 Abs React Lymphs (Man) 0.0 K/mm3 11/30/21 01:01 Monocytes # (Manual) 0.3 K/mm3 (0.0-0.8) 11/30/21 01:01 Eosinophils # (Manual) 0.5 K/mm3 (0.0-0.4) H 11/30/21 01:01 Basophils # (Manual) 0.0 K/mm3 (0.0-0.1) 11/30/21 01:01 Metamyelocytes # 0.0 K/mm3 11/30/21 01:01 Myelocytes # 0.0 K/mm3 11/30/21 01:01 Promyelocytes # 0.0 K/mm3 11/30/21 01:01 Blast Cells # 0.0 K/mm3 11/30/21 01:01 Pathologist Review 11/30/21 01:01 WBC Morphology Not Reportable 11/30/21 01:01 Hypersegmented Neuts Not Reportable 11/30/21 01:01 Hyposegmented Neuts Not Reportable 11/30/21 01:01 Hypogranular Neuts Not Reportable 11/30/21 01:01 Smudge Cells Not Reportable 11/30/21 01:01 Toxic Granulation Not Reportable 11/30/21 01:01 Toxic Vacuolation Not Reportable 11/30/21 01:01 Dohle Bodies Not Reportable 11/30/21 01:01 Pelger-Huet Anomaly Not Reportable 11/30/21 01:01 Sohail Rods Not Reportable 11/30/21 01:01 Platelet Estimate Consistent w auto 11/30/21 01:01 Clumped Platelets Not Reportable 11/30/21 01:01 Plt Clumps, EDTA Not Reportable 11/30/21 01:01 Large Platelets Not Reportable 11/30/21 01:01 Giant Platelets Not Reportable 11/30/21 01:01 Platelet Satelliting Not Reportable 11/30/21 01:01 Plt Morphology Comment Not Reportable 11/30/21 01:01 RBC Morphology Not Reportable 11/30/21 01:01 Dimorphic RBCs Not Reportable 11/30/21 01:01 Polychromasia Not Reportable 11/30/21 01:01 Hypochromasia Not Reportable 11/30/21 01:01 Poikilocytosis Not Reportable 11/30/21 01:01 Anisocytosis 1+ 11/30/21 01:01 Microcytosis 1+ 11/30/21 01:01 Macrocytosis Not Reportable 11/30/21 01:01 Spherocytes Not Reportable 11/30/21 01:01 Pappenheimer Bodies Not Reportable 11/30/21 01:01 Sickle Cells Not Reportable 11/30/21 01:01 Target Cells Not Reportable 11/30/21 01:01 Tear Drop Cells Not Reportable 11/30/21 01:01 Ovalocytes Not Reportable 11/30/21 01:01 Helmet Cells Not Reportable 11/30/21 01:01 Corado-Natural Steps Bodies Not Reportable 11/30/21 01:01 Virgil Rings Not Reportable 11/30/21 01:01 Carlos Cells Not Reportable 11/30/21 01:01 Bite Cells Not Reportable 11/30/21 01:01 Crenated Cell Not Reportable 11/30/21 01:01 Elliptocytes Not Reportable 11/30/21 01:01 Acanthocytes (Spur) Not Reportable 11/30/21 01:01 Rouleaux 1+ 11/30/21 01:01 Hemoglobin C Crystals Not Reportable 11/30/21 01:01 Schistocytes Not Reportable 11/30/21 01:01 Malaria parasites Not Reportable 11/30/21 01:01 Sunday Bodies Not Reportable 11/30/21 01:01 Hem Pathologist Commnt Sent to pathology 11/30/21 01:01 Sodium 142 mmol/L (137-145) 11/30/21 01:01 Potassium 3.6 mmol/L (3.6-5.0) 11/30/21 01:01 Chloride 107.7 mmol/L (98-107) H 11/30/21 01:01 Carbon Dioxide 20 mmol/L (22-30) L 11/30/21 01:01 Anion Gap 18 mmol/L 11/30/21 01:01 BUN 11 mg/dL (9-20) 11/30/21 01:01 Creatinine 0.7 mg/dL (0.8-1.3) L 11/30/21 01:01 Estimated GFR > 60 ml/min 11/30/21 01:01 BUN/Creatinine Ratio 16 % 11/30/21 01:01 Glucose 100 mg/dL (75-100) 11/30/21 01:01 Hemoglobin A1c 5.1 % (4-6) 11/30/21 01:01 Calcium 7.7 mg/dL (8.4-10.2) L 11/30/21 01:01 Total Bilirubin 0.60 mg/dL (0.1-1.2) 11/30/21 01:01 AST 37 units/L (5-40) 11/30/21 01:01 ALT 56 units/L (7-56) 11/30/21 01:01 Alkaline Phosphatase 121 units/L (35-129) 11/30/21 01:01 Total Protein 5.6 g/dL (6.3-8.2) L 11/30/21 01:01 Albumin 3.4 g/dL (3.9-5) L 11/30/21 01:01 Albumin/Globulin Ratio 1.5 % 11/30/21 01:01 Triglycerides 104 mg/dL (2-149) 11/30/21 01:01 Cholesterol 117 mg/dL (50-199) 11/30/21 01:01 LDL Cholesterol Direct 62 mg/dL (50-130) 11/30/21 01:01 HDL Cholesterol 37 mg/dL (40-59) L 11/30/21 01:01 Cholesterol/HDL Ratio 3.16 % 11/30/21 01:01 TSH 1.950 mlU/mL (0.270-4.200) 11/30/21 01:01 Last Vital Signs Temp 97.5 F L 12/07/21 07:46 Pulse 82 12/07/21 11:03 Resp 16 12/07/21 07:46 BP 96/71 12/07/21 11:03 Pulse Ox 94 12/07/21 07:46
[2021-12-07] MEDS: ARFORMOTEROL 15 MCG/2 ML NEBU IH SCH ×3 (12:46→21:32)
[2021-12-07] MEDS: BUDESONIDE 0.5 MG/2 ML NEBU IH SCH ×3 (12:46→21:31)
[2021-12-07] MEDS: TEMAZEPAM 15 MG CAP PO SCH (21:15)
[2021-12-07] MEDS: rOPINIRole 1 MG TAB PO SCH (21:15)
[2021-12-08] MEDS: LEVOTHYROXINE 75 MCG TAB PO SCH (06:15)
[2021-12-08 08:44] VITALS: BP 104/70
[2021-12-08] MEDS: FLUoxetine 20 MG CAP PO SCH (08:49)
[2021-12-08] MEDS: NICOTINE 21 MG/24 HR PATCH TD SCH (08:50)
[2021-12-08] MEDS: BENZTROPINE 0.5 MG TAB PO SCH (08:50)
[2021-12-08] MEDS: clonazePAM 0.5 MG TAB PO SCH (08:50)
[2021-12-08] MEDS: ZIPRASIDONE 60 MG CAP PO SCH (08:50)
[2021-12-08] MEDS: DIVALPROEX DR 125 MG TAB PO SCH (08:50)
[2021-12-08] MEDS: PANTOPRAZOLE 40 MG TAB PO SCH (08:50)
[2021-12-08] MEDS: amLODIPine 10 MG TAB PO SCH (09:02)
== END 2021-12-08 09:00 | disposition home or self-care (01) | DRG 885 ==
LOC: UNDOADMIN 18:17 → 3A 18:17 → 5A 22:50 → UNDOADMIN 11-30 00:03
PROVIDERS: ADMIT Psychiatry & Neurology Psychiatry; ATTEND Psychiatry & Neurology Psychiatry
DX: F31.9 Bipolar disorder, unspecified (principal); F01.51 Vascular dementia, unspecified severity, with behavioral disturbance; R45.851 Suicidal ideations; J44.9 Chronic obstructive pulmonary disease, unspecified; G40.909 Epilepsy, unspecified, not intractable, without status epilepticus; I10 Essential (primary) hypertension; K21.9 Gastro-esophageal reflux disease without esophagitis; Z90.49 Acquired absence of other specified parts of digestive tract; F17.200 Nicotine dependence, unspecified, uncomplicated; M25.559 Pain in unspecified hip; G89.29 Other chronic pain; F41.9 Anxiety disorder, unspecified; F41.1 Generalized anxiety disorder; Z88.0 Allergy status to penicillin
CPT/HCPCS: 36415; 80053; 80061; 83036; 84443; 85007; 85025; 94640; 94760; G0378; Q0177